=== PATIENT | female | born 1935 | race Caucasian/White ===

== ENCOUNTER → 2017-01-16 | Outpatient (CLI) | payer OTHER ==
[2017-01-16 13:04] LABS: BASO % 1.1 %; BASO ABS # 0.07 K/uL (0-0.2); COMPLETE YES; EOS % 2.8 %; HEMATOCRIT 39.5 % (37-47); IG% 0.2 %; LYMPH % 42.6 %; LYMPH ABS # 2.73 K/uL (1.2-3.4); MEAN CELL VOLUME 94.7 fL (80-100); MEAN CORPUSCULAR HEMOGLOBIN 31.9 pg (25-34); MEAN CORPUSCULAR HGB CONC 33.7 g/dl (32-36); MEAN PLATELET VOLUME 10.3 fL (7.4-10.4); MONO % 6.7 %; NEUT % 46.6 %; PLATELET COUNT 297 K/uL (130-400); RED BLOOD COUNT 4.17 M/uL (4.2-5.4); WHITE BLOOD COUNT 6.41 K/uL (4.8-10.8)
[2017-01-16 13:18] LABS: ALT/SGPT 28 U/L (12-78); AST/SGOT 28 U/L (15-37); BLOOD UREA NITROGEN 34 mg/dl (7-18); BUN/CREATININE RATIO 19.8 (10-20); CALCIUM 10.3 mg/dl (8.5-10.1); CARBON DIOXIDE 27 mmol/L (21-32); CHLORIDE 101 mmol/L (98-107); GLUCOSE 93 mg/dl (70-99); POTASSIUM 3.8 mmol/L (3.5-5.1); SODIUM 138 mmol/L (136-145)
[2017-01-16 13:31] LABS: ALB/GLOB RATIO 0.9 (0.9-2); ALKALINE PHOSPHATASE 46 U/L (45-117); CHOLESTEROL 146 mg/dl (0-200); CHOLESTEROL/HDL RATIO 3.6; HDL CHOLESTEROL 41 mg/dl; LDL CHOLESTEROL CALCULATED 78 mg/dl; TRIGLYCERIDES 136 mg/dl (0-150); VERY LOW DENSITY LIPOPROT CALC 27 mg/dl
[2017-01-16 14:01] LABS: ESTIMATED AVERAGE GLUCOSE 111 mg/dl; HA1C FLAG Normal (Normal)
== END | disposition home or self-care (01) ==
LOC: C.LABPBG 10:20
PROVIDERS: ATTEND Neuromusculoskeletal Medicine & OMM
DX: Z00.00 Encounter for general adult medical examination without abnormal findings (principal); E11.9 Type 2 diabetes mellitus without complications; E78.5 Hyperlipidemia, unspecified; I10 Essential (primary) hypertension

== ENCOUNTER → 2017-01-21 | Outpatient (CLI) | payer OTHER ==
--- NOTE | 2017-01-21 09:49 | DIAGNOSTIC IMAGING REPORT ---
EXAMINATION: RENAL ULTRASOUND CLINICAL HISTORY: N18.4 Chronic kidney disease, stage 4 (severe)[id number] COMPARISON STUDY: None FINDINGS: The right kidney measures 16.4 cm. The left kidney is surgically absent. There is no evidence of hydronephrosis. There is a 7 cm upper pole right renal cyst No bladder abnormalities are visualized. The right ureteral jet was visualized. IMPRESSION : 1. 7 cm upper pole right renal cyst 2. No solid renal masses identified 3. Surgically absent left kidney 4. No evidence of hydronephrosis Electronically signed by: Miah Gallo M.D. 01/21/2017 9:48 AM Dictated Date/Time: 01/21/2017 9:46 AM
== END | disposition home or self-care (01) ==
LOC: C.ULTRBC 08:59
PROVIDERS: ATTEND Neuromusculoskeletal Medicine & OMM
DX: N18.4 Chronic kidney disease, stage 4 (severe) (principal); N28.1 Cyst of kidney, acquired; Z90.5 Acquired absence of kidney

== ENCOUNTER → 2017-08-27 | Outpatient (CLI) | payer OTHER ==
[2017-08-27 18:24] LABS: BLOOD UREA NITROGEN 24 mg/dl (7-18); BUN/CREATININE RATIO 17.4 (10-20); CALCIUM 10.1 mg/dl (8.5-10.1); CARBON DIOXIDE 24 mmol/L (21-32); CHLORIDE 95 mmol/L (98-107); GLUCOSE 86 mg/dl (70-99); PHOSPHORUS 2.5 mg/dl (2.5-4.9); POTASSIUM 3.9 mmol/L (3.5-5.1); SODIUM 130 mmol/L (136-145)
== END | disposition home or self-care (01) ==
LOC: C.LABPBG 11:38
PROVIDERS: ATTEND Physician Assistant
DX: E87.1 Hypo-osmolality and hyponatremia (principal)

== ENCOUNTER → 2017-09-03 | Outpatient (CLI) | payer OTHER ==
[2017-09-03 13:16] LABS: BLOOD UREA NITROGEN 25 mg/dl (7-18); BUN/CREATININE RATIO 16.6 (10-20); CALCIUM 10.2 mg/dl (8.5-10.1); CARBON DIOXIDE 25 mmol/L (21-32); CHLORIDE 96 mmol/L (98-107); GLUCOSE 120 mg/dl (70-99); POTASSIUM 3.7 mmol/L (3.5-5.1); SODIUM 132 mmol/L (136-145)
== END | disposition home or self-care (01) ==
LOC: C.LABPBG 11:09
PROVIDERS: ATTEND Internal Medicine Nephrology
DX: N18.4 Chronic kidney disease, stage 4 (severe) (principal); E87.1 Hypo-osmolality and hyponatremia

== ENCOUNTER → 2018-01-29 | Outpatient (CLI) | payer OTHER ==
[2018-01-29 13:19] LABS: HEMOGLOBIN A1C 5.5 % (4.5-5.6)
== END | disposition home or self-care (01) ==
LOC: C.LABPBG 10:41
PROVIDERS: ATTEND Family Medicine
DX: E11.9 Type 2 diabetes mellitus without complications (principal); E78.5 Hyperlipidemia, unspecified

== ENCOUNTER → 2018-02-26 | Outpatient (CLI) | payer OTHER ==
[2018-02-26 16:59] LABS: ALBUMIN 3.3 gm/dl (3.4-5.0); BLOOD UREA NITROGEN 29 mg/dl (7-18); CALCIUM 9.6 mg/dl (8.5-10.1); CARBON DIOXIDE 27 mmol/L (21-32); CREATININE 1.74 mg/dl (0.60-1.20); GLUCOSE 79 mg/dl (70-99); PHOSPHORUS 2.8 mg/dl (2.5-4.9); POTASSIUM 3.6 mmol/L (3.5-5.1); SODIUM 136 mmol/L (136-145)
== END | disposition home or self-care (01) ==
LOC: C.LABPBG 10:31
PROVIDERS: ATTEND Internal Medicine Nephrology
DX: N18.4 Chronic kidney disease, stage 4 (severe) (principal)

== ENCOUNTER → 2018-04-17 | Outpatient (CLI) | payer OTHER ==
[2018-04-17 17:44] LABS: BLOOD UREA NITROGEN 27 mg/dl (7-18); CARBON DIOXIDE 29 mmol/L (21-32); CREATININE 1.42 mg/dl (0.60-1.20); GLUCOSE 118 mg/dl (70-99); POTASSIUM 3.9 mmol/L (3.5-5.1); SODIUM 136 mmol/L (136-145)
== END | disposition home or self-care (01) ==
LOC: C.LABPBG 14:45
PROVIDERS: ATTEND Family Medicine
DX: R42 Dizziness and giddiness (principal); R00.2 Palpitations; R06.02 Shortness of breath

== ENCOUNTER 2021-11-23 19:21 | Inpatient (IN) ==
[~2021-11-23 19:21] MED LIST: ATROPINE SULFATE 0.1 MG/ML 10ML SYR IV ONE; SODIUM BICARB 8.4% INJ 50 MEQ/50 ML SYR IV ONE; SODIUM CHLORIDE 0.9% 10ML FLUSH IV ONE
--- NOTE | 2021-11-23 19:35 | Emergency Department Note ---
Impression & Plan Hypoxia, COVID-19 Admission ED Provider Note HPI: Patient arrived to the ED via EMS ambulance The patient is an 86-year-old female With history of paroxysmal atrial fi brillation, on rivaroxaban, chronic kidney disease, type 2 diabetes, who presents the emergency department the chief complaint of cough that is been worsening for the past several days. Patient states that she was recently started on doxycycline by her PCP without resolution of her cough. States she is also had some generalized weakness. She is not vaccinated against influenza or COVID-19. Per EMS report, patient was saturating at only 80% on room air on their arrival, she responded well to nasal cannula oxygen. On arrival here to the ED she is on room air while being switched over and has saturations at 89% on room air. She denies any chest pain. States she has had some diarrhea but she does not have any abdominal pain. She is otherwise in no acute distress on my initial evaluation. ROS: - Pulmonary: Cough, Shortness of breath *10 point review systems was conducted and is otherwise negative unless stated above *Outpatient medications and allergy history reviewed PE: General: Alert, NAD HEENT: Normocephalic, atraumatic, trachea midline Eyes: Extraocular eye movement is intact, no scleral erythema Pulmonary: Diminished breath sounds bilaterally with mild expiratory wheezing, coarse bilateral breath sounds are appreciated Cardio: Regular rate and rhythm GI: Abdomen is soft, nontender : No suprapubic tenderness MSK: No evidence of trauma or malformation of the extremities, no edema Skin: No evidence of rash Neuro: Alert, no focal deficits Psychiatric: 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 Patient states she has been increasingly symptomatic from the standpoint over the past several days. She was concerned that she might have pneumonia therefore presented to the ED for further assessment. She is saturating at 89% on room air on arrival with mild increased work of breathing. Labwork Does not show any evidence of leukocytosis, troponin is negative x1, EKG shows atrial fibrillation without ischemic changes. COVID-19 testing is positive.Patient is noted to have slight hypokalemia 2.9 which was repleted orally.Lactic acid level is elevated slightly at 2.3, patient was given IV fluids in the ED. She was not given a full 30 cc/kg secondary to hemodynamic stability and concern for fluid overload. Interventions included MDI Treatment, IV steroids. Chest x-ray was obtained that shows What appears to be a viral pattern of inflammation/pneumonia. Procalcitonin is low, I do suspect that the patient's symptoms are secondary to COVID-19 pneumonia. She does not have a leukocytosis in addition to low procalcitonin, low suspicion for bacterial infection at this time. Given the patient's oxygen requirement, she will require admission, case was discussed with the on-call hospitalist for [facility] and the patient was admitted in improved condition. * CRITICAL CARE TIME: 40 minutes - Stabilization of hypoxia requiring nasal cannula oxygen to maintain oxygen saturations greater than 90% on room air, time spent at bedside, interpretation of diagnostic studies, discussion with other healthcare providers/physicians Diagnosis: 1. Hypoxia With supplemental oxygen requirement 2. COVID-19 pneumonia 3. Lactic acidosis 4. Hypokalemia Disposition: Admission Bebeto Schulz DO Emergency Medicine Past Med/Surg History Medical History Anxiety Arthritis Benign essential hypertension Chronic kidney disease, stage 4 (severe) Degenerative joint disease of knee Diabetes type 2, controlled Essential tremor Glaucoma Hyperlipidemia Paroxysmal atrial fibrillation Reactive airway disease Solitary right kidney Urinary incontinence Vitamin D deficiency Surgical History S/P cataract surgery S/P cholecystectomy S/p nephrectomy (1978) S/P total hysterectomy and bilateral salpingo-oophorectomy (1976) Family History Mother , 1962. Cardiac disorder Asthma Rheumatic fever Stroke Father , when patient was 4 yrs old No problems noted. Sister Asthma Denies family history of Ovarian cancer Prostate cancer Myocardial infarction Breast cancer Colorectal cancer Social History Smoking Status: Never smoker Second Hand Exposure: Yes; Hx Alcohol Use: No Hx Substance Use: No Preferred Language: [place] Visual Impairment: Limited Hearing Ability: Normal Hide And Skin Classer Required: No Beliefs That Will Affect Care: None marital status: / Current Living Situation: Other Current Living Situation Comment: lives with daughter and dogs Feels Safe at Home: Yes Childhood Exposure to Second-Hand Smoke: Yes caffeine: Yes during the past year weight has: remained stable Dental Care, Regularly: No Physical Activity Frequency: Does not Exercise Seatbelt Use: always Sunscreen Use: No Allergies Allergies Allergy/AdvReac Type Severity Reaction Status Date / Time No Known Drug Allergies Allergy Verified 06/22/21 12:01 Home Meds Home Medications Medication Instructions Recorded Confirmed brinzolamide 1 % eye 1 drops OP BID ml 07/26/19 11/23/21 drops,suspension fluticasone propionate 50 1 sprays INTRANASAL BID #1 gm 07/26/19 11/23/21 mcg/actuation nasal spray,suspension omega-3 fatty acids-fish oil 360 1 cap PO BID 07/26/19 11/23/21 mg-1,200 mg capsule (Fish Oil) blood sugar diagnostic See Rx Instructions MISCELLANEOUS 07/30/19 11/23/21 [Diabetic.com Test] .COMPLEX acetaminophen 500 mg capsule 500 mg PO HS PRN cap 08/04/19 11/23/21 latanoprost 0.005 % eye drops 1 drops OP .COMPLEX 08/04/19 11/23/21 cetirizine 10 mg tablet (All Day 10 mg PO DAILY PRN tab 06/01/21 11/23/21 Allergy (cetirizine)) Previous Rx's Medication Instructions Recorded multivitamin (Multiple Vitamins) 1 tab PO QAM #30 tab 07/30/19 amlodipine 5 mg tablet 5 mg PO DAILY #90 tab 05/15/21 losartan 100 mg tablet 100 mg PO DAILY #90 tab 05/15/21 fenofibrate nanocrystallized 145 145 mg PO DAILY #90 tab 05/26/21 mg tablet furosemide 20 mg tablet 20 mg PO DAILY #90 tab 05/26/21 metoprolol succinate 50 mg 50 mg PO DAILY #90 tab 05/26/21 tablet,extended release 24 hr rivaroxaban 15 mg tablet (Xarelto) 15 mg PO QPM #90 tab 05/31/21 fluticasone 500 mcg-salmeterol 50 1 inh INHALATION BID #60 ea 06/12/21 mcg/dose blistr powdr for inhalation albuterol sulfate 90 mcg/actuation 1 - 2 puff INHALATION Q4H PRN #18 09/04/21 aerosol inhaler gm alprazolam 0.5 mg tablet 0.5 mg PO BID #60 tab 11/07/21 doxycycline hyclate 100 mg tablet 100 mg PO BID 7 Days #14 tab 11/22/21 Results & Data (ED) Vital Signs Vital Signs - 24 hr 11/23/21 19:55 11/23/21 20:00 11/23/21 20:01 Temperature 37.4 C Temperature Source Axillary Pulse Rate 92 H Pulse Rate [Left Apical] Pulse Rhythm Irregular Pulse Rhythm [Left Apical] Pulse Strength Normal Respiratory Rate 24 22 Respiratory Effort / Characteristics Non-Labored Non-Labored Respiratory Depth Normal Respiratory Pattern Blood Pressure 149/78 H Blood Pressure [Left Arm] Blood Pressure Mean 101 Blood Pressure Mean [Left Arm] Blood Pressure Position Sitting Blood Pressure Position [Left Arm] Pulse Oximetry 89 L 93 93 Oxygen Delivery Method Room Air Nasal Cannula Nasal Cannula Oxygen Flow Rate 2 2 Sepsis Recent Fever Within 48 Hours Yes Sepsis New/Unexplained Change in Mental Status No Sepsis Action Taken by Nursing No Action Required Oxygen Flow Rate - Titration 2 Pulse Oximetry Post Tiitration 93 11/23/21 21:47 11/23/21 21:51 Temperature Temperature Source Pulse Rate Pulse Rate [Left Apical] 102 H Pulse Rhythm Pulse Rhythm [Left Apical] Irregular Pulse Strength Respiratory Rate 24 Respiratory Effort / Characteristics Non-Labored Non-Labored Respiratory Depth Normal Normal Respiratory Pattern Regular Regular Blood Pressure Blood Pressure [Left Arm] 149/78 H Blood Pressure Mean Blood Pressure Mean [Left Arm] 101 Blood Pressure Position Blood Pressure Position [Left Arm] Sitting Pulse Oximetry 89 L Oxygen Delivery Method Nasal Cannula Nasal Cannula Oxygen Flow Rate 2 3 Sepsis Recent Fever Within 48 Hours Sepsis New/Unexplained Change in Mental Status Sepsis Action Taken by Nursing Oxygen Flow Rate - Titration Pulse Oximetry Post Tiitration Laboratory Data Result diagrams: 11/23/21 19:48 11/23/21 19:48 Lab Results 11/23/21 11/23/21 11/23/21 Range/Units 19:48 19:48 19:48 WBC 5.13 (4.8-10.8) K/uL RBC 4.26 (4.2-5.4) M/uL Hgb 13.8 (12.0-16.0) g/dL Hct 40.0 (37-47) % MCV 93.9 (80-100) fL MCH 32.4 (25-34) pg MCHC 34.5 (32-36) g/dL RDW Std Deviation 44.7 (36.4-46.3) fL RDW Coeff of Maren 13.0 (11.5-14.5) % Plt Count 253 (130-400) K/uL MPV 10.4 (7.4-10.4) fL Immature Gran % (Auto) 0.2 % Neut % (Auto) 84.6 % Lymph % (Auto) 10.5 % [place] % (Auto) 4.7 % Eos % (Auto) 0.0 % Baso % (Auto) 0.0 % Neut # (Auto) 4.34 (1.4-6.5) K/uL Lymph # (Auto) 0.54 L (1.2-3.4) K/uL [place] # (Auto) 0.24 (0.11-0.59) K/uL Eos # (Auto) 0.00 (0-0.5) K/uL Baso # (Auto) 0.00 (0-0.2) K/uL Immature Gran # (Auto) 0.01 (0.00-0.02) K/uL PT (9.0-12.0) Seconds INR (0.9-1.1) APTT (21.0-31.0) Seconds PTT Ratio Sodium 131 L (136-145) mmol/L Potassium 2.9 L (3.5-5.1) mmol/L Chloride 94 L (98-107) mmol/L Carbon Dioxide 29 (21-32) mmol/L Anion Gap 8.0 (3-11) BUN 25 H (7-18) mg/dl Creatinine 1.15 (0.6-1.2) mg/dl Est Cr Clr Drug Dosing 39.8 ml/min Est GFR ( Amer) 49.2 ml/min Est GFR (Non-Af Amer) 42.4 ml/min BUN/Creatinine Ratio 21.8 H (10-20) Glucose 185 H (70-99) mg/dl Lactate 2.3 H* (0.4-2.0) mmol/L Calcium 8.6 (8.5-10.1) mg/dl Magnesium 2.0 (1.8-2.4) mg/dl Total Bilirubin 0.7 (0.2-1) mg/dl AST 81 H (15-37) U/L ALT 45 (12-78) Alkaline Phosphatase 56 (45-117) U/L Troponin I 0.022 (0-0.045) ng/ml Total Protein 6.5 (6.4-8.2) gm/dl Albumin 2.3 L (3.4-5.0) gm/dl Globulin 4.2 H (2.5-4.0) gm/dl Albumin/Globulin Ratio 0.5 L (0.9-2) Procalcitonin (0-0.5) ng/ml SARS-CoV-2 (PCR) (Negative) Influenza Type A (PCR) (Neg) Influenza Type B (PCR) (Neg) RSV (RT-PCR) (Neg) 11/23/21 11/23/21 11/23/21 Range/Units 19:48 19:48 19:48 WBC (4.8-10.8) K/uL RBC (4.2-5.4) M/uL Hgb (12.0-16.0) g/dL Hct (37-47) % MCV (80-100) fL MCH (25-34) pg MCHC (32-36) g/dL RDW Std Deviation (36.4-46.3) fL RDW Coeff of Maren (11.5-14.5) % Plt Count (130-400) K/uL MPV (7.4-10.4) fL Immature Gran % (Auto) % Neut % (Auto) % Lymph % (Auto) % [place] % (Auto) % Eos % (Auto) % Baso % (Auto) % Neut # (Auto) (1.4-6.5) K/uL Lymph # (Auto) (1.2-3.4) K/uL [place] # (Auto) (0.11-0.59) K/uL Eos # (Auto) (0-0.5) K/uL Baso # (Auto) (0-0.2) K/uL Immature Gran # (Auto) (0.00-0.02) K/uL PT 13.8 H (9.0-12.0) Seconds INR 1.4 H (0.9-1.1) APTT 33.8 H (21.0-31.0) Seconds PTT Ratio 1.3 Sodium (136-145) mmol/L Potassium (3.5-5.1) mmol/L Chloride (98-107) mmol/L Carbon Dioxide (21-32) mmol/L Anion Gap (3-11) BUN (7-18) mg/dl Creatinine (0.6-1.2) mg/dl Est Cr Clr Drug Dosing ml/min Est GFR ( Amer) ml/min Est GFR (Non-Af Amer) ml/min BUN/Creatinine Ratio (10-20) Glucose (70-99) mg/dl Lactate (0.4-2.0) mmol/L Calcium (8.5-10.1) mg/dl Magnesium (1.8-2.4) mg/dl Total Bilirubin (0.2-1) mg/dl AST (15-37) U/L ALT (12-78) Alkaline Phosphatase (45-117) U/L Troponin I (0-0.045) ng/ml Total Protein (6.4-8.2) gm/dl Albumin (3.4-5.0) gm/dl Globulin (2.5-4.0) gm/dl Albumin/Globulin Ratio (0.9-2) Procalcitonin 0.17 (0-0.5) ng/ml SARS-CoV-2 (PCR) POSITIVE A* (Negative) Influenza Type A (PCR) Negative (Neg) Influenza Type B (PCR) Negative (Neg) RSV (RT-PCR) Negative (Neg) Administered Medications Discontinued Medications Albuterol (Ipratropium De Beque/Albuterol Respimat Inh) 1 puffs INH NOW STA Stop: 11/23/21 21:08 Last Admin: 11/23/21 21:35 Dose: 1 puffs Documented by: [id number] Sodium Chloride (Nss 1000ml) 500 mls @ 999 mls/hr IV .Q31M ONE Stop: 11/23/21 21:12 Last Admin: 11/23/21 21:35 Dose: 999 mls/hr Documented by: [id number] Methylprednisolone (Methylprednisolone 125 Mg/2 Ml Vial) 125 mg IV NOW STA Stop: 11/23/21 21:08 Last Admin: 11/23/21 21:35 Dose: 125 mg Documented by: [id number] Discharge Plan Visit Data Chief Complaint: Shortness of Breath/Dyspnea Stated Complaint: SOB, COVID EXPOSURE(SPOUSE) ED Provider: Bebeto Schulz Discharge Problem: Hypoxia, COVID-19 Forms Stand Alone Forms: [facility] Prescriptions Prescriptions: No Action amlodipine 5 mg tablet 5 mg PO DAILY Qty: 90 RF: 3 losartan 100 mg tablet 100 mg PO DAILY Qty: 90 RF: 3 fenofibrate nanocrystallized 145 mg tablet 145 mg PO DAILY Qty: 90 RF: 3 furosemide 20 mg tablet 20 mg PO DAILY Qty: 90 RF: 3 metoprolol succinate 50 mg tablet extended release 24 hr 50 mg PO DAILY Qty: 90 RF: 3 Xarelto 15 mg tablet 15 mg PO QPM Qty: 90 RF: 3 fluticasone propion-salmeterol 500-50 mcg/dose blister with device 1 inh inhalation BID Qty: 60 RF: 5 albuterol sulfate 90 mcg/actuation HFA aerosol inhaler 1 - 2 puff inhalation Q4H PRN (Reason: acute bronchitis) Qty: 18 RF: 1 alprazolam 0.5 mg tablet 0.5 mg PO BID Qty: 60 RF: 0 doxycycline hyclate 100 mg tablet 100 mg PO BID 7 Days Qty: 14 RF: 0 brinzolamide 1 % drops,suspension 1 drops OP BID RF: 0 omega-3 fatty acids-fish oil [Fish Oil] 360-1,200 mg capsule 1 cap PO BID RF: 0 fluticasone propionate 50 mcg/actuation spray,suspension 1 sprays intranasal BID Qty: 1 RF: 0 blood sugar diagnostic See Rx Instructions miscellaneous .COMPLEX RF: 0 acetaminophen 500 mg capsule 500 mg PO HS PRN (Reason: Pain) RF: 0 latanoprost 0.005 % drops 1 drops OP .COMPLEX RF: 0 cetirizine [All Day Allergy (cetirizine)] 10 mg tablet 10 mg PO DAILY PRN (Reason: allergies) RF: 0 multivitamin [Multiple Vitamins] tablet 1 tab PO QAM Qty: 30 RF: 0 Referrals Referrals: Teresa Vaughn DO [Primary Care Provider] -
[2021-11-23 20:02] LABS: Hemoglobin 13.8 g/dL (12.0-16.0); Mean Corpuscular Hemoglobin 32.4 pg (25-34); Mean Corpuscular Hgb Conc 34.5 g/dL (32-36); Mean Corpuscular Volume 93.9 fL (80-100); Mean Platelet Volume 10.4 fL (7.4-10.4); Platelet Count 253 K/uL (130-400); RDW Standard Deviation 44.7 fL (36.4-46.3); Red Blood Count 4.26 M/uL (4.2-5.4); White Blood Count 5.13 K/uL (4.8-10.8)
[2021-11-23 20:17] LABS: Albumin Level 2.3 gm/dl (3.4-5.0); BUN Creatinine Ratio 21.8 (10-20); Calcium 8.6 mg/dl (8.5-10.1); Creatinine Clr Calc Pharmacy 39.8 ml/min; Est GFR (African American) 49.2 ml/min; Est GFR (Non-African American) 42.4 ml/min; Potassium 2.9 mmol/L (3.5-5.1)
[2021-11-23 20:19] LABS: INR 1.4 (0.9-1.1); Partial Thromboplastin Ratio 1.3; Partial Thromboplastin Time 33.8 Seconds (21.0-31.0); Prothrombin Time 13.8 Seconds (9.0-12.0)
[2021-11-23 20:20] LABS: Immature Granulocytes # (auto) 0.01 K/uL (0.00-0.02); Immature Granulocytes % (auto) 0.2 %; Lymphocytes # (auto) 0.54 K/uL (1.2-3.4); Lymphocytes % (auto) 10.5 %; Monocytes # (auto) 0.24 K/uL (0.11-0.59); Monocytes % (auto) 4.7 %; Neutrophils # (auto) 4.34 K/uL (1.4-6.5); Neutrophils % (auto) 84.6 %
[2021-11-23 20:22] LABS: Albumin Globulin Ratio 0.5 (0.9-2); Bilirubin,Total 0.7 mg/dl (0.2-1); Globulin 4.2 gm/dl (2.5-4.0); Total Protein 6.5 gm/dl (6.4-8.2); Troponin I 0.022 ng/ml (0-0.045)
[2021-11-23] MEDS ORDERED: SODIUM CHLORIDE 0.9% 1000ML 500 ML IV ONE (20:42)
[2021-11-23] MEDS ORDERED: IPRATROPIUM BROMIDE/ALBUTEROL respimat INH INH STA (21:07)
[2021-11-23] MEDS ORDERED: methylPREDNISolone 125 MG/2 ML VIAL IV STA (21:07)
[2021-11-23 21:19] LABS: Influenza A virus by PCR Negative (Neg); Influenza B virus by PCR Negative (Neg); RSV by PCR Negative (Neg)
[2021-11-23 21:30] LABS: SARS CoV2 RNA(COVID-19) InHosp POSITIVE (Negative)
[2021-11-23] MEDS ORDERED: POTASSIUM CHLORIDE PWD 20 MEQ PACK PO ONE (21:53)
[2021-11-23] MEDS ORDERED: REMDESIVIR 200 MG in SODIUM CHLORIDE 0.9% 210 ML IV STA (22:40)
--- NOTE | 2021-11-23 22:41 | History & Physical Report ---
Date of Service November 23, 2021 Assessment & Plan (1) Pneumonia due to COVID-19 virus: Plan: COVID-19 pneumonia with hypoxia- Dexamethasone 6 mg IV every morning Remdesivir IV per protocol Azithromycin 5 mg IV daily Ventolin HFA 2 puffs every 2 hours as needed Nasal cannula oxygen, titrate to keep pulse ox 94-95% Vitamin D 1000 international units p.o. every morning guaifenesin extended release 12 mg p.o. every 12 hours (2) Hypoxia: Plan: See above (3) Paroxysmal atrial fibrillation: Plan: Paroxysmal atrial fibrillation/hypertension- Continue amlodipine, losartan, metoprolol succinate and Xarelto (4) Hyperlipidemia: Plan: Continue fenofibrate (5) Glaucoma: Plan: Continue routine eyedrops (6) Essential tremor: (7) Diabetes type 2, controlled: Plan: Glucose 185 upon admission Placed on Accu-Cheks before meals and at bedtime with NovoLog coverage per scale Check hemoglobin A1c (8) Benign essential hypertension: Plan: See above (9) Anxiety: Plan: Continue alprazolam History of Present Illness Chief Complaint: The patient presents to the emergency department with complaint of worsening shortness of breath over the past 6 to 7 days, have been placed on doxycycline by her PCP without improvement in her cough. Primary Care Provider: Teresa Vaughn DO The patient is a 86-year-old female with a past medical history including CKD stage IV, hypertension, anxiety, urinary incontinence, diabetes mellitus type 2, essential tremor, glaucoma, hyperlipidemia, paroxysmal A. fib, reactive airways disease, solitary kidney and vitamin D deficiency. Patient presents with symptoms as noted above. Allergies Allergy/AdvReac Type Severity Reaction Status Date / Time No Known Drug Allergies Allergy Verified 06/22/21 12:01 Home Medications Medication Instructions Recorded Confirmed Type brinzolamide 1 % eye 1 drops OP BID ml 07/26/19 11/23/21 History drops,suspension fluticasone propionate 50 1 sprays INTRANASAL BID #1 gm 07/26/19 11/23/21 History mcg/actuation nasal spray,suspension omega-3 fatty acids-fish oil 360 1 cap PO BID 07/26/19 11/23/21 History mg-1,200 mg capsule (Fish Oil) blood sugar diagnostic See Rx Instructions MISCELLANEOUS 07/30/19 11/23/21 History [Diabetic.com Test] .COMPLEX multivitamin (Multiple Vitamins) 1 tab PO QAM #30 tab 07/30/19 11/23/21 Rx acetaminophen 500 mg capsule 500 mg PO HS PRN cap 08/04/19 11/23/21 History latanoprost 0.005 % eye drops 1 drops OP .COMPLEX 08/04/19 11/23/21 History amlodipine 5 mg tablet 5 mg PO DAILY #90 tab 05/15/21 11/23/21 Rx losartan 100 mg tablet 100 mg PO DAILY #90 tab 05/15/21 11/23/21 Rx fenofibrate nanocrystallized 145 145 mg PO DAILY #90 tab 05/26/21 11/23/21 Rx mg tablet furosemide 20 mg tablet 20 mg PO DAILY #90 tab 05/26/21 11/23/21 Rx metoprolol succinate 50 mg 50 mg PO DAILY #90 tab 05/26/21 11/23/21 Rx tablet,extended release 24 hr rivaroxaban 15 mg tablet (Xarelto) 15 mg PO QPM #90 tab 05/31/21 11/23/21 Rx cetirizine 10 mg tablet (All Day 10 mg PO DAILY PRN tab 06/01/21 11/23/21 History Allergy (cetirizine)) fluticasone 500 mcg-salmeterol 50 1 inh INHALATION BID #60 ea 06/12/21 11/23/21 Rx mcg/dose blistr powdr for inhalation albuterol sulfate 90 mcg/actuation 1 - 2 puff INHALATION Q4H PRN #18 09/04/21 11/23/21 Rx aerosol inhaler gm alprazolam 0.5 mg tablet 0.5 mg PO BID #60 tab 11/07/21 11/23/21 Rx doxycycline hyclate 100 mg tablet 100 mg PO BID 7 Days #14 tab 11/22/21 11/23/21 Rx Past Med/Surg History Medical History Anxiety Arthritis Benign essential hypertension Chronic kidney disease, stage 4 (severe) Degenerative joint disease of knee Diabetes type 2, controlled Essential tremor Glaucoma Hyperlipidemia Paroxysmal atrial fibrillation Reactive airway disease Solitary right kidney Urinary incontinence Vitamin D deficiency Surgical History S/P cataract surgery S/P cholecystectomy S/p nephrectomy (1978) S/P total hysterectomy and bilateral salpingo-oophorectomy (1976) Family History Mother , 1962. Cardiac disorder Asthma Rheumatic fever Stroke Father , when patient was 4 yrs old No problems noted. 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 Beliefs That Will Affect Care: None marital status: / Current Living Situation: Other Current Living Situation Comment: lives with daughter and dogs Feels Safe at Home: Yes Childhood Exposure to Second-Hand Smoke: Yes caffeine: Yes during the past year weight has: remained stable Dental Care, Regularly: No Physical Activity Frequency: Does not Exercise Seatbelt Use: always Sunscreen Use: No Review of Systems Review of Systems: The patient denies palpitations, lower extremity swelling, sore throat, fevers, chills, sweats, nausea, vomiting, diarrhea , constipation, abdominal pain, pelvic pain, blood in urine or stool, dysuria, lightheadedness, dizziness, loss of consciousness, rash, abnormal bruising or bleeding, focal weakness, numbness or tingling in arms or legs, generalized arthralgias or myalgias, back or neck pain, or night sweats. The review of systems is otherwise negative other than for that already noted above, and at least 10 systems have been reviewed. Physical Exam Physical Exam: The patient is awake, alert and oriented 3, normocephalic and atraumatic, lying in bed and in no acute distress. HEENT--PERRL, EOMI, mucous membranes and oropharynx dry. Neck--supple. No JVD. No bruits. Thyroid normal, trachea midline, no adenopathy. Heart--normal S1 and S2. No murmurs, rubs or gallops. Lungs--coarse breath sounds bilaterally. No respiratory distress, no accessory muscle use. Abdomen--normal bowel sounds and soft. Nontender. Nondistended Extremities--no cyanosis or clubbing. No edema Dermatologic--normal skin turgor, normal color, no abnormal lymph nodes, no rash. Neurologic--cranial nerves II through XII grossly intact. Rheumatologic--normal range of motion. Psychiatric--normal affect. Results & Data Results & Data ([facility]) Vital Signs (Past 12 Hours) Vital Signs Temp Pulse Pulse Resp BP BP Pulse Ox 11/23/21 21:47 102 H 24 149/78 H 89 L 11/23/21 20:01 93 11/23/21 20:00 22 93 11/23/21 19:55 37.4 C 92 H 24 149/78 H 89 L Laboratory Results Laboratory Results WBC 5.13 K/uL (4.8-10.8) 11/23/21 19:48 RBC 4.26 M/uL (4.2-5.4) 11/23/21 19:48 Hgb 13.8 g/dL (12.0-16.0) 11/23/21 19:48 Hct 40.0 % (37-47) 11/23/21 19:48 MCV 93.9 fL (80-100) 11/23/21 19:48 MCH 32.4 pg (25-34) 11/23/21 19:48 MCHC 34.5 g/dL (32-36) 11/23/21 19:48 RDW Std Deviation 44.7 fL (36.4-46.3) 11/23/21 19:48 RDW Coeff of Maren 13.0 % (11.5-14.5) 11/23/21 19:48 Plt Count 253 K/uL (130-400) 11/23/21 19:48 MPV 10.4 fL (7.4-10.4) 11/23/21 19:48 Immature Gran % (Auto) 0.2 % 11/23/21 19:48 Neut % (Auto) 84.6 % 11/23/21 19:48 Lymph % (Auto) 10.5 % 11/23/21 19:48 [place] % (Auto) 4.7 % 11/23/21 19:48 Eos % (Auto) 0.0 % 11/23/21 19:48 Baso % (Auto) 0.0 % 11/23/21 19:48 Neut # (Auto) 4.34 K/uL (1.4-6.5) 11/23/21 19:48 Lymph # (Auto) 0.54 K/uL (1.2-3.4) L 11/23/21 19:48 [place] # (Auto) 0.24 K/uL (0.11-0.59) 11/23/21 19:48 Eos # (Auto) 0.00 K/uL (0-0.5) 11/23/21 19:48 Baso # (Auto) 0.00 K/uL (0-0.2) 11/23/21 19:48 Immature Gran # (Auto) 0.01 K/uL (0.00-0.02) 11/23/21 19:48 PT 13.8 Seconds (9.0-12.0) H 11/23/21 19:48 INR 1.4 (0.9-1.1) H 11/23/21 19:48 APTT 33.8 Seconds (21.0-31.0) H 11/23/21 19:48 PTT Ratio 1.3 11/23/21 19:48 Sodium 131 mmol/L (136-145) L 11/23/21 19:48 Potassium 2.9 mmol/L (3.5-5.1) L 11/23/21 19:48 Chloride 94 mmol/L (98-107) L 11/23/21 19:48 Carbon Dioxide 29 mmol/L (21-32) 11/23/21 19:48 Anion Gap 8.0 (3-11) 11/23/21 19:48 BUN 25 mg/dl (7-18) H 11/23/21 19:48 Creatinine 1.15 mg/dl (0.6-1.2) 11/23/21 19:48 Est Cr Clr Drug Dosing 39.8 ml/min 11/23/21 19:48 Est GFR ( Amer) 49.2 ml/min 11/23/21 19:48 Est GFR (Non-Af Amer) 42.4 ml/min 11/23/21 19:48 BUN/Creatinine Ratio 21.8 (10-20) H 11/23/21 19:48 Glucose 185 mg/dl (70-99) H 11/23/21 19:48 Osmolality 284 mOsm/kg (280-300) 11/23/21 19:48 Lactate 1.5 mmol/L (0.4-2.0) 11/23/21 21:42 Calcium 8.6 mg/dl (8.5-10.1) 11/23/21 19:48 Magnesium 2.0 mg/dl (1.8-2.4) 11/23/21 19:48 Total Bilirubin 0.7 mg/dl (0.2-1) 11/23/21 19:48 AST 81 U/L (15-37) H 11/23/21 19:48 ALT 45 (12-78) 11/23/21 19:48 Alkaline Phosphatase 56 U/L (45-117) 11/23/21 19:48 Troponin I 0.022 ng/ml (0-0.045) 11/23/21 19:48 Total Protein 6.5 gm/dl (6.4-8.2) 11/23/21 19:48 Albumin 2.3 gm/dl (3.4-5.0) L 11/23/21 19:48 Globulin 4.2 gm/dl (2.5-4.0) H 11/23/21 19:48 Albumin/Globulin Ratio 0.5 (0.9-2) L 11/23/21 19:48 Procalcitonin 0.17 ng/ml (0-0.5) 11/23/21 19:48 SARS-CoV-2 (PCR) POSITIVE (Negative) A* 11/23/21 19:48 Influenza Type A (PCR) Negative (Neg) 11/23/21 19:48 Influenza Type B (PCR) Negative (Neg) 11/23/21 19:48 RSV (RT-PCR) Negative (Neg) 11/23/21 19:48 Code Status & VTE Plan Code Status Full code VTE Prophylaxis Plan VTE Prophylaxis will be ordered: Yes PG Care Time/CCT Total # of Minutes Spent Total Time Spent with Patient: Total time spent is greater than 50% in coordination of care (as documented) at patient's floor/unit and/or counseling patient: Coding Level of Care Code 77026 Initial Inpt Care Lvl 3 Diagnoses Pneumonia due to COVID-19 virus U07.1; J12.82 Hypoxia R09.02 Paroxysmal atrial fibrillation I48.0 Hyperlipidemia E78.5 Glaucoma H40.9 Essential tremor G25.0 Diabetes type 2, controlled E11.9 Benign essential hypertension I10 Anxiety F41.9
[2021-11-24] MEDS ORDERED: GLUCOSE 40% GEL 15 GM TUBE PO PRN (01:46)
[2021-11-24] MEDS ORDERED: DEXTROSE 50% 50 ML SYRINGE IV PRN (01:46)
[2021-11-24] MEDS ORDERED: GLUCAGON FOR INJ 1 MG VIAL SQ PRN (01:46)
[2021-11-24] MEDS ORDERED: ALBUTEROL HFA 8 GM INHALER INH PRN (01:46)
[2021-11-24] MEDS ORDERED: ONDANSETRON INJ 2 MG/ML 2 ML VIAL IV PRN (01:46)
[2021-11-24] MEDS ORDERED: GLUCOSE 10 TABS/TUBE PO PRN (01:46)
[2021-11-24] MEDS ORDERED: CETIRIZINE HCL 10 MG TABLET PO PRN (01:46)
[2021-11-24] MEDS ORDERED: CARBOHYDRATES FOR HYPOGLYCEMIA PO PRN (01:46)
[2021-11-24] MEDS: SODIUM CHLORIDE 0.9% 10ML FLUSH IV SCH ×2 (01:56→22:04)
[2021-11-24] MEDS ORDERED: dexAMETHasone 6 MG in SYRINGE 0 ML IV ONE (02:00)
[2021-11-24 05:54] LABS: Basophils # (auto) 0.01 K/uL (0-0.2); Basophils % (auto) 0.3 %; Hematocrit (blood only) 36.6 % (37-47); Hemoglobin 12.5 g/dL (12.0-16.0); Immature Granulocytes # (auto) 0.01 K/uL (0.00-0.02); Immature Granulocytes % (auto) 0.3 %; Lymphocytes # (auto) 0.57 K/uL (1.2-3.4); Lymphocytes % (auto) 15.3 %; Mean Corpuscular Hemoglobin 32.1 pg (25-34); Mean Corpuscular Hgb Conc 34.2 g/dL (32-36); Mean Corpuscular Volume 94.1 fL (80-100); Mean Platelet Volume 10.1 fL (7.4-10.4); Monocytes # (auto) 0.15 K/uL (0.11-0.59); Neutrophils # (auto) 2.99 K/uL (1.4-6.5); Neutrophils % (auto) 80.1 %; Platelet Count 222 K/uL (130-400); RDW Coefficient of Variation 13.1 % (11.5-14.5); RDW Standard Deviation 45.3 fL (36.4-46.3); Red Blood Count 3.89 M/uL (4.2-5.4); White Blood Count 3.73 K/uL (4.8-10.8)
[2021-11-24 06:22] LABS: BUN Creatinine Ratio 22.1 (10-20); Calcium 8.6 mg/dl (8.5-10.1); Creatinine Clr Calc Pharmacy 41.2 ml/min; Est GFR (African American) 51.3 ml/min; Est GFR (Non-African American) 44.3 ml/min; Potassium 3.6 mmol/L (3.5-5.1)
[2021-11-24 06:23] LABS: Albumin Globulin Ratio 0.5 (0.9-2); Bilirubin,Total 0.5 mg/dl (0.2-1); Globulin 3.8 gm/dl (2.5-4.0); Total Protein 5.8 gm/dl (6.4-8.2)
--- NOTE | 2021-11-24 07:36 | XRay Report ---
XR chest 1V portable HISTORY: 86 years-old Female SEPSIS acute sepsis. COVID Positive. COMPARISON: None TECHNIQUE: Portable AP view of the chest FINDINGS: The cardiac silhouette is enlarged. Calcified plaque the thoracic aorta. No pneumothorax. Possible tr juan r pleural effusions. Interstitial coarsening with multifocal left greater than right mid and lower lung zone predominant airspace opacities. Degenerative changes of the shoulders and spine. IMPRESSION: Findings compatible with multifocal pneumonia. ACT 112: Negative or not required by law. The above report was generated using voice recognition software. It may contain grammatical, syntax o r spelling errors. Electronically signed by: Braulio Haskins M.D. 11/24/2021 7:35 AM
[2021-11-24 07:51] LABS: Estimated Average Glucose 137 mg/dl; Hemoglobin A1C 6.4 % (4.5-5.6)
[2021-11-24] MEDS ORDERED: AZITHROMYCIN 500 MG in DEXTROSE 5% 250 ML IV SCH (09:00)
[2021-11-24] MEDS: FLUTICASONE/VILANTEROL 200/25MCG 14 PUFFS/INHALER INH SCH (09:55)
[2021-11-24] MEDS: MULTIVITAMIN TAB PO SCH (09:55)
[2021-11-24] MEDS: ZINC SULFATE 220 MG CAPSULE PO SCH (09:55)
[2021-11-24] MEDS: LOSARTAN POTASSIUM 50 MG TAB PO SCH (09:56)
[2021-11-24] MEDS: guaiFENesin 600 MG TABCR PO SCH ×2 (09:56→22:05)
[2021-11-24] MEDS: dexAMETHasone 6 MG in SYRINGE 0 ML IV SCH (09:56)
[2021-11-24] MEDS: METOPROLOL SUCC 50MG EXT REL TAB PO SCH (09:56)
[2021-11-24] MEDS: FENOFIBRATE NANOCRYSTALLIZED 145 MG TABLET PO SCH (09:56)
[2021-11-24] MEDS: OMEGA-3 (PURIFIED FISH OIL) 1 GM CAP PO SCH ×2 (09:56→22:06)
[2021-11-24] MEDS: CHOLECALCIFEROL 1,000 UNITS 25 MCG TAB PO SCH (09:57)
[2021-11-24] MEDS: BRINZOLAMIDE (AZOPT) OPS 10 ML BTL OP SCH ×2 (09:57→22:04)
[2021-11-24] MEDS: amLODIPine BESYLATE 5 MG TAB PO SCH (09:57)
[2021-11-24] MEDS: ALPRAZolam 0.5 MG TABLET PO SCH ×2 (09:57→22:04)
--- NOTE | 2021-11-24 10:24 | Electrocardiogram Report ---
Test Reason : Blood Pressure : / mmHG Vent. Rate : 108 BPM Atrial Rate : 136 BPM P-R Int : 000 ms QRS Dur : 118 ms QT Int : 376 ms P-R-T Axes : 000 -38 132 degrees QTc Int : 503 ms Atrial fibrillation with rapid ventricular response with premature ventricular or aberrantly conducte d complexes Left axis deviation Left ventricular hypertrophy with QRS widening Abnormal ECG No previous ECGs available Confirmed by Micheal Early ([id number]) on 11/24/2021 10:23:59 AM Referred By: REFERRED SELF Confirmed By:Micheal Early
[2021-11-24] MEDS: INSULIN ASPART PER UNIT SC SCH ×4 (11:36→21:53)
[2021-11-24] MEDS: ALBUT/IPRATROP 3MG/0.5MG NEB 3 ML VIAL NEB SCH ×2 (11:37)
--- NOTE | 2021-11-24 14:32 | Hospitalist Progress Note ---
Date of Service November 24, 2021 Assessment & Plan (1) Pneumonia due to COVID-19 virus: Plan: With associated hypoxia Dexamethasone 6 mg IV daily x 10 days Remdesivir IV per protocol Azithromycin 500 mg IV daily ordered by admitting team, will d/c, no additional benefit Ventolin HFA 2 puffs every 2 hours as needed Nasal cannula oxygen, titrate to keep pulse ox >88-92% Vitamin D 1000 international units & Zinc every morning Guaifenesin extended release 1200 mg p.o. every 12 hours Breo Ellipta Routine Duonebs ordered but will change to Xopenex/Atrovent d/t PAF Prone as much as possible Serial inflammatory markers q48h Provide a dose of IV Lasix 40mg x1 and resume daily PO dose (Lasix 20mg) tomorrow AM Aim to keep COVID patient's slightly net negative due to their tendency to more easily develop pulmonary edema COVID isolation precautions (2) Hypoxia: Plan: As per above (3) Paroxysmal atrial fibrillation: Plan: Currently in NSR Metoprolol succinate and Xarelto (4) Hyperlipidemia: Plan: Continue fenofibrate (5) Glaucoma: Plan: Continue routine eyedrops (6) Essential tremor: Plan: Doesn't appear to be on any chronic medications for this (7) Diabetes type 2, controlled: Plan: Glucose 185 upon admission Placed on Accu-Checks before meals and at bedtime with NovoLog coverage per scale hemoglobin A1c=6.4% Anticipate some hyperglycemia in setting of IV Decadron Add Lantus 10units at HS Follow blood sugars (8) Benign essential hypertension: Plan: See above (9) Anxiety: Plan: Continue alprazolam (10) Chronic kidney disease, stage 4 (severe): Plan: Follows with nephrology, baseline creat 1.6-1.8 per their documentation Suspect that she is actually hypervolemic Provide IV Lasix as noted above and resume daily Lasix Plan: Interventions as outlined above On Xarelto which is provided VTE ppx AM Labs ordered including CRP -- if continues to have climbing O2 requirements and CRP>7.5, would be candidate for Baricitinib Prognosis: guarded Code status d/w patient, she wishes to be full code at present Admission and Anticipated Discharge Date Admission Date: November 23, 2021 Subjective Ms. Joshua was seen on rounds today. Pt hospitalized with COVID-19 PNA w/ associated hypoxia. Pt reports symptoms x 7 days (today being day #8). Exposed through grandson. She is unvaccinated. Pt admits to dry, nonproductive cough. She feels like she needs to bring stuff up but can't. Denies chest pain, palpitations, n/v/d, f/c, headache, abd pain, or gu symptoms. Review of Systems Review of Systems: CONSTITUTIONAL: Denies weight loss/gain, fever and chills, fatigue, malaise, generalized weakness. HEENT: Denies changes in vision and hearing. RESPIRATORY: +cough. Denies SOB, wheezing. CV: Denies palpitations, CP, lower extremity edema, orthopnea, PND. GI: Denies abdominal pain, nausea, vomiting and diarrhea. : Denies dysuria and urinary frequency, urgency, hesitancy. MUSCULOSKELETAL: Denies myalgia and joint pain. SKIN: Denies rash and pruritus. NEUROLOGICAL: Denies headache, syncope, focal weakness, numbness, tingling. PSYCHIATRIC: Denies recent changes in mood. Denies anxiety and depression. Physical Exam Physical Exam: GENERAL: 86 yo WD/WN elderly WF. NAD. LUNGS: No accessory muscle use. Decreased air exchange. Scattered exp wheezes appreciated b/l. CARDIOVASCULAR: Regular rate and rhythm. No M/G/R. No JVD. ABDOMEN: Soft, non-tender and non-distended. No palpable masses. BS normal x 4 quad. EXTREMITIES: No edema. Non-tender. Peripheral pulses +2/4. NEUROLOGIC: A&O x3. PSYCHIATRIC: Cooperative. Appropriate mood and affect. SKIN: Warm, dry, intact. No rashes or lesions. Results & Data Results & Data ([facility]) Vital Signs (Past 12 Hours) Vital Signs Pulse Resp BP Pulse Ox Pulse Ox 11/24/21 11:37 98 H 18 92 11/24/21 10:31 110 H 26 H 154/83 H 94 11/24/21 03:06 18 93 93 11/24/21 03:03 90 18 133/80 94 Laboratory Results 11/24/21 05:42 11/24/21 05:42 PG Care Time/CCT Total # of Minutes Spent Total Time Spent with Patient: Total time spent is greater than 50% in coordination of care (as documented) at patient's floor/unit and/or counseling patient: Coding Level of Care Code 12354 Subseq Hosp Care Lvl 3 Diagnoses Pneumonia due to COVID-19 virus U07.1; J12.82 Hypoxia R09.02 Paroxysmal atrial fibrillation I48.0 Hyperlipidemia E78.5 Glaucoma H40.9 Essential tremor G25.0 Diabetes type 2, controlled E11.9 Benign essential hypertension I10 Anxiety F41.9 Chronic kidney disease, stage 4 (severe) N18.4
[2021-11-24] MEDS ORDERED: FUROSEMIDE INJ 20 MG/2 ML VIAL IV ONE (14:45)
[2021-11-24] MEDS ORDERED: FUROSEMIDE 40 MG/4 ML VIAL IV ONE (14:45)
[2021-11-24] MEDS: RIVAROXABAN 15 MG TAB PO SCH (17:56)
[2021-11-24] MEDS ORDERED: XOPENEX/ATROVENT 0.63mg/0.5MG NEB COMBO NEB SCH (19:00)
[2021-11-24] MEDS: IPRATROPIUM BROMIDE NEB SOLN 0.02% 2.5 ML VIAL INH SCH (20:56)
[2021-11-24] MEDS: LEVALBUTEROL HCL 0.63 MG/3 ML NEB NEB SCH (20:56)
[2021-11-24] MEDS: INSULIN GLARGINE SOLOSTAR 100 UNITS/ML 3 ML PEN SC SCH (21:53)
[2021-11-24] MEDS: REMDESIVIR 100 MG in SODIUM CHLORIDE 0.9% 230 ML IV SCH (22:04)
[2021-11-24] MEDS: LATANOPROST 0.005% OP SOLN 2.5 ML BTL OPR SCH (22:45)
[2021-11-25] MEDS: IPRATROPIUM BROMIDE NEB SOLN 0.02% 2.5 ML VIAL INH SCH ×5 (02:10→20:23)
[2021-11-25] MEDS: LEVALBUTEROL HCL 0.63 MG/3 ML NEB NEB SCH ×5 (02:10→20:23)
[2021-11-25 08:00] LABS: Hematocrit (blood only) 37.9 % (37-47); Hemoglobin 12.8 g/dL (12.0-16.0); Mean Corpuscular Hemoglobin 32.1 pg (25-34); Mean Corpuscular Hgb Conc 33.8 g/dL (32-36); Mean Platelet Volume 10.6 fL (7.4-10.4); Platelet Count 281 K/uL (130-400); RDW Coefficient of Variation 13.4 % (11.5-14.5); RDW Standard Deviation 46.5 fL (36.4-46.3); Red Blood Count 3.99 M/uL (4.2-5.4); White Blood Count 8.05 K/uL (4.8-10.8)
[2021-11-25 08:20] LABS: Basophils # (auto) 0.01 K/uL (0-0.2); Basophils % (auto) 0.1 %; Immature Granulocytes # (auto) 0.02 K/uL (0.00-0.02); Immature Granulocytes % (auto) 0.2 %; Lymphocytes # (auto) 1.11 K/uL (1.2-3.4); Lymphocytes % (auto) 13.8 %; Monocytes # (auto) 0.43 K/uL (0.11-0.59); Monocytes % (auto) 5.3 %; Neutrophils # (auto) 6.48 K/uL (1.4-6.5); Neutrophils % (auto) 80.6 %
[2021-11-25 08:25] LABS: Albumin Level 1.9 gm/dl (3.4-5.0); BUN Creatinine Ratio 34.3 (10-20); Calcium 8.4 mg/dl (8.5-10.1); Creatinine Clr Calc Pharmacy 38.8 ml/min; Est GFR (African American) 48.7 ml/min; Potassium 3.5 mmol/L (3.5-5.1)
[2021-11-25 08:29] LABS: Albumin Globulin Ratio 0.5 (0.9-2); Bilirubin,Total 0.4 mg/dl (0.2-1); C Reactive Protein 2.8 mg/dl (0-0.29); Globulin 3.7 gm/dl (2.5-4.0); Total Protein 5.6 gm/dl (6.4-8.2)
[2021-11-25] MEDS: INSULIN ASPART PER UNIT SC SCH ×4 (08:40→21:50)
[2021-11-25] MEDS: dexAMETHasone 6 MG in SYRINGE 0 ML IV SCH (09:19)
[2021-11-25] MEDS: FLUTICASONE/VILANTEROL 200/25MCG 14 PUFFS/INHALER INH SCH (09:21)
[2021-11-25] MEDS: ZINC SULFATE 220 MG CAPSULE PO SCH (09:22)
[2021-11-25] MEDS: LOSARTAN POTASSIUM 50 MG TAB PO SCH (09:22)
[2021-11-25] MEDS: MULTIVITAMIN TAB PO SCH (09:22)
[2021-11-25] MEDS: guaiFENesin 600 MG TABCR PO SCH ×2 (09:22→21:28)
[2021-11-25] MEDS: METOPROLOL SUCC 50MG EXT REL TAB PO SCH (09:22)
[2021-11-25] MEDS: amLODIPine BESYLATE 5 MG TAB PO SCH (09:23)
[2021-11-25] MEDS: FUROSEMIDE 20 MG TAB PO SCH (09:23)
[2021-11-25] MEDS: OMEGA-3 (PURIFIED FISH OIL) 1 GM CAP PO SCH ×2 (09:23→21:29)
[2021-11-25] MEDS: FENOFIBRATE NANOCRYSTALLIZED 145 MG TABLET PO SCH (09:23)
[2021-11-25] MEDS: CHOLECALCIFEROL 1,000 UNITS 25 MCG TAB PO SCH (09:23)
[2021-11-25] MEDS: BRINZOLAMIDE (AZOPT) OPS 10 ML BTL OP SCH ×2 (09:24→21:30)
[2021-11-25] MEDS: ALPRAZolam 0.5 MG TABLET PO SCH ×2 (09:31→21:32)
[2021-11-25] MEDS: ACETAMINOPHEN 325 MG TAB PO PRN (09:31)
[2021-11-25] MEDS ORDERED: CALCIUM CARBONATE 500 MG CHEWABLE TAB PO PRN (11:04)
--- NOTE | 2021-11-25 11:06 | XRay Report ---
XR chest 1V portable CLINICAL HISTORY: Covid PNA TECHNIQUE: Single frontal radiograph of the chest was obtained. Comparison: Comparison is made to chest one view 11/23/2021 FINDINGS: No lines and tubes are seen. The cardiomediastinal silhouette is stable. Interval improvement in bila teral lower lung predominant airspace opacities. No evidence of pleural effusion or pneumothorax. IMPRESSION: Interval improvement in bilateral airspace disease compatible with history of pneumonia. Stable cardi omegaly. ACT 112: Negative or not required by law. Electronically signed by: Sage Jose M.D. 11/25/2021 11:05 AM
[2021-11-25] MEDS ORDERED: FUROSEMIDE INJ 20 MG/2 ML VIAL IV ONE (13:34)
--- NOTE | 2021-11-25 15:36 | Hospitalist Progress Note ---
Date of Service November 25, 2021 Assessment & Plan (1) Pneumonia due to COVID-19 virus: Plan: Attending: Dr. Fuentes 24-hour update: Patient continues to require supplemental oxygen. Currently at 4 L/min via nasal cannula. Discussion with patient today regarding CODE STATUS. She wishes to not be intubated and placed on mechanical ventilation and she also wishes not to have cardiac compressions performed. CODE STATUS changed to a level 5 DNR/DNI. With associated hypoxia Dexamethasone 6 mg IV daily -day #2/10 days Remdesivir IV per protocol -day #2 of . This may not have much effect as patient is currently day 8 of symptoms. Azithromycin 500 mg IV daily ordered by admitting team. Was discontinued yesterday. If patient has worsening condition, can use azithromycin for anti- inflammatory effect Ventolin HFA 2 puffs every 2 hours as needed Continue with supplemental oxygen to maintain SaO2 between 88% and 92%. Consider high flow O2 if patient gets more tachypneic. No indication for CPAP u nless patient becomes hypercapnic Vitamin D 1000 international units & Zinc every morning ordered. Guaifenesin extended release 1200 mg p.o. every 12 hours Continue Breo Ellipta in place of patient's home Symbicort Routine Xopenex/Atrovent d/t PAF Patient advised to prone as often as possible. Also advised to sleep on her side and rotate [id number] from left to right as tolerated. CRP is not elevated Patient with coarse crackles this morning. She received 20 mg of oral furosemide. I gave her an additional 20 mg IV. Continue pure wick and follow I's and O's Aim to keep COVID patient's slightly net negative due to their tendency to more easily develop pulmonary edema COVID isolation precautions (2) Hypoxia: Plan: As per above (3) Paroxysmal atrial fibrillation: Plan: Currently in NSR Continue msuccinate and Xarelto (4) Hyperlipidemia: Plan: Continue fenofibrate (5) Glaucoma: Plan: Continue routine eyedrops (6) Essential tremor: Plan: Doesn't appear to be on any chronic medications for this (7) Diabetes type 2, controlled: Plan: Glucose 185 upon admission Placed on Accu-Checks before meals and at bedtime with NovoLog coverage per scale hemoglobin A1c=6.4% Anticipate some hyperglycemia in setting of IV Decadron Added Lantus 10units at HS beginning 11/24/2021 Follow blood sugars (8) Benign essential hypertension: Plan: See above (9) Anxiety: Plan: Continue alprazolam (10) Chronic kidney disease, stage 4 (severe): Plan: Follows with nephrology, baseline creat 1.6-1.8 per their documentation Suspect that she is actually hypervolemic Provide IV Lasix as noted above and resume daily Lasix. May need PRN Lasix daily. Follow clinically Plan: Interventions as outlined above On Xarelto which is provided VTE ppx AM Labs ordered including CRP -- if continues to have climbing O2 requirements and CRP>7.5, would be candidate for Baricitinib Prognosis: guarded Long discussion with patient regarding CODE STATUS. She does not want to undergo mechanical ventilation or chest compressions in the event of cardiopulmonary decline. I attempted to contact the daughter twice today. I left a voicemail and there was no return call. Patient was clear that she would not want to undergo endotracheal intubation. CODE STATUS updated on the computer per patient's request. This is certainly appropriate in an 86-year-old with Covid due to such high mortality in the event of worsening respiratory failure. Admission and Anticipated Discharge Date Admission Date: November 23, 2021 Subjective Attending: Dr. Fuentes Patient seen and examined in room 218. She is sitting up in bed. She has no acute respiratory distress. She is saturating at 89 to 90% on 6 L by nasal cannula. Respiratory rate is between 18 and 20. No use of accessory muscles at this time. Patient states that she has been warm but no documented fever. She has no sweats or rigors. She denies any nausea or vomiting or diarrhea. She has nonproductive cough. Today is day #9 of symptoms a day #2 of admission. She was placed on doxycycline as an outpatient by her PCP with no improvement. Review of Systems Review of Systems: All systems reviewed & are unremarkable except as noted in Subjective Physical Exam Physical Exam: GENERAL : No acute distress EYES: No icterus, gaze conjugate NOSE: No evidence of epistaxis. Nasal cannula in place and secure MOUTH: No lesions or candidiasis NECK: Supple LUNGS: Minimal wheezes. Adequate inspirational effort. Crackles at the bases. HEART: Regular, rate controlled ABDOMEN: Soft, NT, ND, BS Present EXTREMITIES: Bilateral LE edema, pedal pulses intact and equal bilaterally NEURO: A&OX3 Results & Data Results & Data ([facility]) Vital Signs (Past 12 Hours) Vital Signs Temp Pulse Resp BP Pulse Ox 11/25/21 14:33 118 H 21 88 L 11/25/21 11:50 36.7 C 103 H 20 114/83 89 L 11/25/21 11:13 107 H 22 88 L 11/25/21 07:50 88 L 11/25/21 07:36 36.8 C 86 20 122/86 91 11/25/21 03:42 93 Laboratory Results 11/25/21 07:14 11/25/21 07:14 COVID-19 Results 11/23/21 19:48 SARS-CoV-2 (PCR) POSITIVE A* Laboratory Tests 11/25/21 07:14 C-Reactive Protein 2.80 H Diagnostic Findings Chest X-Ray 11/25/21 10:09 XR chest 1V portable CLINICAL HISTORY: Covid PNA TECHNIQUE: Single frontal radiograph of the chest was obtained. Comparison: Comparison is made to chest one view 11/23/2021 FINDINGS: No lines and tubes are seen. The cardiomediastinal silhouette is stable. Interval improvement in bilateral lower lung predominant airspace opacities. No evidence of pleural effusion or pneumothorax. IMPRESSION: Interval improvement in bilateral airspace disease compatible with history of pneumonia. Stable cardiomegaly. ACT 112: Negative or not required by law. Electronically signed by: Sage Jose M.D. 11/25/2021 11:05 AM PG Care Time/CCT Total # of Minutes Spent Total Time Spent with Patient: Total time spent is greater than 50% in coordination of care (as documented) at patient's floor/unit and/or counseling patient: 30 minutes Coding Level of Care Code 71086 Subseq Hosp Care Lvl 2 Diagnoses Pneumonia due to COVID-19 virus U07.1; J12.82 Hypoxia R09.02 Paroxysmal atrial fibrillation I48.0 Hyperlipidemia E78.5 Glaucoma H40.9 Essential tremor G25.0 Diabetes type 2, controlled E11.9 Benign essential hypertension I10 Anxiety F41.9 Chronic kidney disease, stage 4 (severe) N18.4 Time Spent (min) 30
[2021-11-25] MEDS ORDERED: SENNOSIDES 8.8 MG/5 ML UDC PO ONE (16:06)
[2021-11-25] MEDS: RIVAROXABAN 15 MG TAB PO SCH (18:20)
[2021-11-25] MEDS: REMDESIVIR 100 MG in SODIUM CHLORIDE 0.9% 230 ML IV SCH (21:28)
[2021-11-25] MEDS: LATANOPROST 0.005% OP SOLN 2.5 ML BTL OPR SCH (21:30)
[2021-11-25] MEDS: INSULIN GLARGINE SOLOSTAR 100 UNITS/ML 3 ML PEN SC SCH (21:51)
[2021-11-25] MEDS: SODIUM CHLORIDE 0.9% 10ML FLUSH IV SCH (23:02)
[2021-11-26] MEDS: IPRATROPIUM BROMIDE NEB SOLN 0.02% 2.5 ML VIAL INH SCH ×4 (05:50→18:14)
[2021-11-26] MEDS: LEVALBUTEROL HCL 0.63 MG/3 ML NEB NEB SCH ×4 (05:50→18:14)
[2021-11-26 07:23] LABS: Basophils # (auto) 0.01 K/uL (0-0.2); Basophils % (auto) 0.1 %; Hematocrit (blood only) 40.6 % (37-47); Hemoglobin 13.8 g/dL (12.0-16.0); Immature Granulocytes # (auto) 0.04 K/uL (0.00-0.02); Immature Granulocytes % (auto) 0.4 %; Lymphocytes # (auto) 1.13 K/uL (1.2-3.4); Lymphocytes % (auto) 10.2 %; Mean Corpuscular Hemoglobin 32.2 pg (25-34); Mean Corpuscular Volume 94.6 fL (80-100); Mean Platelet Volume 10.7 fL (7.4-10.4); Monocytes # (auto) 0.46 K/uL (0.11-0.59); Monocytes % (auto) 4.1 %; Neutrophils # (auto) 9.47 K/uL (1.4-6.5); Neutrophils % (auto) 85.2 %; Platelet Count 323 K/uL (130-400); RDW Coefficient of Variation 13.5 % (11.5-14.5); RDW Standard Deviation 46.7 fL (36.4-46.3); Red Blood Count 4.29 M/uL (4.2-5.4); White Blood Count 11.11 K/uL (4.8-10.8)
--- NOTE | 2021-11-26 07:43 | Hospitalist Progress Note ---
Date of Service November 26, 2021 Assessment & Plan (1) Pneumonia due to COVID-19 virus: Plan: Attending: Dr. Fuentes 24-hour update: Patient continues to require supplemental oxygen. Currently at 4 L/min via nasal cannula. Discussion with patient today regarding CODE STATUS. She wishes to not be intubated and placed on mechanical ventilation and she also wishes not to have cardiac compressions performed. CODE STATUS changed to a level 5 DNR/DNI. First symptoms: ~ 11/16/21 First tested: in our system 11/23/21 Vaccinated: No Admission date: Admission O2 requirement: Admission CRP: Dexamethasone course started: 11/23/21 Remdesivir started: 11/23/21 Tocilizumab given/baricitinib did not meet criteria Antibiotics: Azithromycin 500 mg IV daily ordered by admitting team. Was discontinued 11/25/21 Ventolin HFA 2 puffs every 2 hours as needed Continue with supplemental oxygen to maintain SaO2 between 88% and 92%. Consider high flow O2 if patient gets more tachypneic. No indication for CPAP unless patient becomes hypercapnic Vitamin D 1000 international units & Zinc every morning ordered. Guaifenesin extended release 1200 mg p.o. every 12 hours Continue Breo Ellipta in place of patient's home Symbicort Routine Xopenex/Atrovent d/t PAF Patient advised to prone as often as possible. Also advised to sleep on her side and rotate [id number] from left to right as tolerated. CRP is not elevated Patient with coarse crackles this morning. She received 20 mg of oral furosemide. I gave her an additional 20 mg IV. Continue pure wick and follow I's and O's Aim to keep COVID patient's slightly net negative due to their tendency to more easily develop pulmonary edema COVID isolation precautions (2) Hypoxia: Plan: As per above (3) Paroxysmal atrial fibrillation: Plan: Currently in NSR Continue succinate and Xarelto (4) Hyperlipidemia: Plan: Continue fenofibrate (5) Glaucoma: Plan: Continue routine eyedrops (6) Essential tremor: Plan: Doesn't appear to be on any chronic medications for this (7) Diabetes type 2, controlled: Plan: Glucose 185 upon admission Placed on Accu-Checks before meals and at bedtime with NovoLog coverage per scale hemoglobin A1c=6.4% Anticipate some hyperglycemia in setting of IV Decadron Added Lantus 10units at HS beginning 11/24/2021 Follow blood sugars (8) Benign essential hypertension: Plan: See above (9) Anxiety: Plan: Continue alprazolam (10) Chronic kidney disease, stage 4 (severe): Plan: Follows with nephrology, baseline creat 1.6-1.8 per their documentation Suspect that she is actually hypervolemic Provide IV Lasix as noted above and resume daily Lasix. May need PRN Lasix daily. Follow clinically Plan: Interventions as outlined above On Xarelto which is provided VTE ppx Prognosis: guarded Admission and Anticipated Discharge Date Admission Date: November 23, 2021 Subjective pt is alert and oriented and has many questions today, she is on 6-8 L nc oxygen and appears comfortable Review of Systems Review of Systems: Moderate distress and fatigue no headache, no visual changes no speech or swallowing issues no chest pain, pressure or palpitations Continue shortness of breath, nonproductive cough or wheezes no abdominal pain, nausea or vomiting, no diarrhea no dysuria, hematuria or frequency no focal joint pain or swelling no back pain, CVA tenderness or radicular pain no bruising, bleeding or rashes no focal signs of weakness or numbness or altered sensation no complaints of anxiety or depression.. Physical Exam Physical Exam: The patient appeared mild to moderate respiratory distress Vital signs as documented. Head exam is normocephalic atraumatic Neck is without JVD, thyromegaly, or carotid bruits. Lungs are coarse bilaterally in all lung gutierrez tachypnea Cardiac exam, Rhythm is regular.. No murmurs, rubs or gallops. Abdominal exam reveals normal bowel sounds, soft non tender, no masses Extremities are nonedematous and both pedal pulses are present Neurologic exam is alert and oriented, no focal loss of strength or sensation Skin is without bruises or rashes Psychologically is without concerns for anxiety or depression.. Results & Data Results & Data ([facility]) Vital Signs (Past 12 Hours) Vital Signs Temp Pulse Pulse Resp BP Pulse Ox 11/26/21 07:20 97.3 F L 110 H 20 123/76 88 L 11/26/21 05:51 20 92 11/26/21 03:06 98.1 F 80 14 119/77 92 11/25/21 23:59 81 11/25/21 23:03 97.7 F 96 H 13 107/72 92 11/25/21 20:23 102 H 20 92 PG Care Time/CCT Total # of Minutes Spent Total Time Spent with Patient: Total time spent is greater than 50% in coordination of care (as documented) at patient's floor/unit and/or counseling patient: Coding Level of Care Code 14995 Subseq Hosp Care Lvl 2 Diagnoses Pneumonia due to COVID-19 virus U07.1; J12.82 Hypoxia R09.02 Paroxysmal atrial fibrillation I48.0 Hyperlipidemia E78.5 Glaucoma H40.9 Essential tremor G25.0 Diabetes type 2, controlled E11.9 Benign essential hypertension I10 Anxiety F41.9 Chronic kidney disease, stage 4 (severe) N18.4
[2021-11-26 07:51] LABS: BUN Creatinine Ratio 39.5 (10-20); Calcium 8.7 mg/dl (8.5-10.1); Creatinine Clr Calc Pharmacy 40.6 ml/min; Est GFR (African American) 51.3 ml/min; Est GFR (Non-African American) 44.3 ml/min; Potassium 3.3 mmol/L (3.5-5.1)
[2021-11-26 07:54] LABS: Albumin Globulin Ratio 0.5 (0.9-2); Bilirubin,Total 0.5 mg/dl (0.2-1)
[2021-11-26] MEDS: INSULIN ASPART PER UNIT SC SCH ×4 (08:40→21:43)
[2021-11-26] MEDS: ZINC SULFATE 220 MG CAPSULE PO SCH (09:10)
[2021-11-26] MEDS: MULTIVITAMIN TAB PO SCH (09:11)
[2021-11-26] MEDS: LOSARTAN POTASSIUM 50 MG TAB PO SCH (09:11)
[2021-11-26] MEDS: CHOLECALCIFEROL 1,000 UNITS 25 MCG TAB PO SCH (09:11)
[2021-11-26] MEDS: OMEGA-3 (PURIFIED FISH OIL) 1 GM CAP PO SCH ×2 (09:11→20:35)
[2021-11-26] MEDS: METOPROLOL SUCC 50MG EXT REL TAB PO SCH (09:11)
[2021-11-26] MEDS: FENOFIBRATE NANOCRYSTALLIZED 145 MG TABLET PO SCH (09:11)
[2021-11-26] MEDS: FLUTICASONE/VILANTEROL 200/25MCG 14 PUFFS/INHALER INH SCH (09:12)
[2021-11-26] MEDS: amLODIPine BESYLATE 5 MG TAB PO SCH (09:12)
[2021-11-26] MEDS: BRINZOLAMIDE (AZOPT) OPS 10 ML BTL OP SCH ×2 (09:12→20:34)
[2021-11-26] MEDS: guaiFENesin 600 MG TABCR PO SCH ×2 (09:53→20:35)
[2021-11-26] MEDS: dexAMETHasone 6 MG in SYRINGE 0 ML IV SCH (09:53)
[2021-11-26] MEDS: ALPRAZolam 0.5 MG TABLET PO SCH ×2 (09:53→20:33)
[2021-11-26] MEDS: FUROSEMIDE 20 MG TAB PO SCH (09:54)
[2021-11-26] MEDS: SENNA 8.6 MG TAB PO SCH (10:07)
[2021-11-26 16:44] LABS: Appearance Urine Clear (Clear); Bilirubin Urine Negative (Negative); Blood Urine Negative (Negative); Color Urine Yellow; Glucose Urine UA Negative (Negative); Ketones Urine Negative (Negative); Leukocyte Esterase Urine Negative (Negative); Nitrite Urine Negative (Negative); Protein Urine Negative (Negative); Specific Gravity Urine 1.012 (1.000-1.030); Urobilinogen Urine Negative (Negative)
[2021-11-26] MEDS: RIVAROXABAN 15 MG TAB PO SCH (17:45)
[2021-11-26] MEDS: REMDESIVIR 100 MG in SODIUM CHLORIDE 0.9% 230 ML IV SCH (20:33)
[2021-11-26] MEDS: LATANOPROST 0.005% OP SOLN 2.5 ML BTL OPR SCH (20:34)
[2021-11-26] MEDS: ACETAMINOPHEN 325 MG TAB PO PRN (20:34)
[2021-11-26] MEDS: SODIUM CHLORIDE 0.9% 10ML FLUSH IV SCH (21:43)
[2021-11-26] MEDS: INSULIN GLARGINE SOLOSTAR 100 UNITS/ML 3 ML PEN SC SCH (21:43)
[2021-11-27] MEDS: IPRATROPIUM BROMIDE NEB SOLN 0.02% 2.5 ML VIAL INH SCH ×2 (07:34→11:06)
[2021-11-27] MEDS: LEVALBUTEROL HCL 0.63 MG/3 ML NEB NEB SCH ×2 (07:34→11:07)
[2021-11-27] MEDS: METOPROLOL SUCC 50MG EXT REL TAB PO SCH (09:13)
[2021-11-27] MEDS: MULTIVITAMIN TAB PO SCH (09:13)
[2021-11-27] MEDS: ZINC SULFATE 220 MG CAPSULE PO SCH (09:13)
[2021-11-27] MEDS: FUROSEMIDE 20 MG TAB PO SCH (09:14)
[2021-11-27] MEDS: OMEGA-3 (PURIFIED FISH OIL) 1 GM CAP PO SCH ×2 (09:14→20:31)
[2021-11-27] MEDS: guaiFENesin 600 MG TABCR PO SCH ×2 (09:14→20:31)
[2021-11-27] MEDS: LOSARTAN POTASSIUM 50 MG TAB PO SCH (09:14)
[2021-11-27] MEDS: FENOFIBRATE NANOCRYSTALLIZED 145 MG TABLET PO SCH (09:14)
[2021-11-27] MEDS: amLODIPine BESYLATE 5 MG TAB PO SCH (09:14)
[2021-11-27] MEDS: CHOLECALCIFEROL 1,000 UNITS 25 MCG TAB PO SCH (09:14)
[2021-11-27] MEDS: FLUTICASONE/VILANTEROL 200/25MCG 14 PUFFS/INHALER INH SCH (09:15)
[2021-11-27] MEDS: BRINZOLAMIDE (AZOPT) OPS 10 ML BTL OP SCH ×2 (09:19→20:31)
[2021-11-27] MEDS: dexAMETHasone 6 MG in SYRINGE 0 ML IV SCH (09:19)
[2021-11-27] MEDS: SENNA 8.6 MG TAB PO SCH (09:20)
[2021-11-27] MEDS: INSULIN ASPART PER UNIT SC SCH ×4 (09:25→22:00)
[2021-11-27] MEDS: ALPRAZolam 0.5 MG TABLET PO SCH ×2 (09:25→20:29)
[2021-11-27] MEDS: CALCIUM CARBONATE 500 MG CHEWABLE TAB PO PRN ×2 (11:30→21:59)
[2021-11-27] MEDS: ALBUTEROL HFA 8 GM INHALER INH SCH ×2 (15:05→19:16)
--- NOTE | 2021-11-27 17:12 | Hospitalist Progress Note ---
Date of Service November 27, 2021 Assessment & Plan (1) Pneumonia due to COVID-19 virus: Plan: 24-hour update: Patient continues to require supplemental oxygen. Currently at 6-8 L/min via nasal cannula. Discussion with patient today regarding CODE STATUS. She wishes to not be intubated and placed on mechanical ventilation and she also wishes not to have cardiac compressions performed. CODE STATUS changed to a level 5 DNR/DNI. First symptoms: ~ 11/16/21 First tested: in our system 11/23/21 Vaccinated: No Admission date: Admission O2 requirement: Admission CRP: Dexamethasone course started: 11/23/21 Remdesivir started: 11/23/21 Tocilizumab given/baricitinib did not meet criteria Antibiotics: Azithromycin 500 mg IV daily ordered by admitting team. Was discontinued 11/25/21 Ventolin HFA 2 puffs every 2 hours as needed Continue with supplemental oxygen to maintain SaO2 between 88% and 92%. Consider high flow O2 if patient gets more tachypneic. No indication for CPAP unless patient becomes hypercapnic Vitamin D 1000 international units & Zinc every morning ordered. Guaifenesin extended release 1200 mg p.o. every 12 hours Continue Breo Ellipta in place of patient's home Symbicort Routine Xopenex/Atrovent d/t PAF Patient advised to prone as often as possible. Also advised to sleep on her side and rotate [id number] from left to right as tolerated. CRP is not elevated Patient with coarse crackles this morning. She received 20 mg of oral furosemide. Continue pure wick and follow I's and O's Aim to keep COVID patient's slightly net negative due to their tendency to more easily develop pulmonary edema COVID isolation precautions (2) Hypoxia: Plan: As per above (3) Paroxysmal atrial fibrillation: Plan: Currently in NSR Continue succinate and Xarelto (4) Hyperlipidemia: Plan: Continue fenofibrate (5) Glaucoma: Plan: Continue routine eyedrops (6) Essential tremor: Plan: Doesn't appear to be on any chronic medications for this (7) Diabetes type 2, controlled: Plan: Glucose 185 upon admission Placed on Accu-Checks before meals and at bedtime with NovoLog coverage per scale hemoglobin A1c=6.4% Anticipate some hyperglycemia in setting of IV Decadron Added Lantus 10units at HS beginning 11/24/2021 Follow blood sugars (8) Benign essential hypertension: Plan: See above (9) Anxiety: Plan: Continue alprazolam (10) Chronic kidney disease, stage 4 (severe): Plan: Follows with nephrology, baseline creat 1.6-1.8 per their documentation Suspect that she is actually hypervolemic Provide IV Lasix as noted above and resume daily Lasix. May need PRN Lasix daily. Follow clinically Plan: Interventions as outlined above On Xarelto which is provided VTE ppx Prognosis: guarded Admission and Anticipated Discharge Date Admission Date: November 23, 2021 Subjective pt is alert and oriented and has many questions today, she is on 6-8 L nc oxygen and appears comfortable Review of Systems Review of Systems: Moderate distress and fatigue no headache, no visual changes no speech or swallowing issues no chest pain, pressure or palpitations Continue shortness of breath, nonproductive cough or wheezes no abdominal pain, nausea or vomiting, no diarrhea no dysuria, hematuria or frequency no focal joint pain or swelling no back pain, CVA tenderness or radicular pain no bruising, bleeding or rashes no focal signs of weakness or numbness or altered sensation no complaints of anxiety or depression.. Physical Exam Physical Exam: The patient appeared mild to moderate respiratory distress Vital signs as documented. Head exam is normocephalic atraumatic Neck is without JVD, thyromegaly, or carotid bruits. Lungs are coarse bilaterally in all lung gutierrez tachypnea Cardiac exam, Rhythm is regular.. No murmurs, rubs or gallops. Abdominal exam reveals normal bowel sounds, soft non tender, no masses Extremities are nonedematous and both pedal pulses are present Neurologic exam is alert and oriented, no focal loss of strength or sensation Skin is without bruises or rashes Psychologically is without concerns for anxiety or depression.. Results & Data Results & Data ([facility]) Vital Signs (Past 12 Hours) Vital Signs Temp Pulse Pulse Resp BP Pulse Ox 11/27/21 15:45 98.4 F 101 H 85 14 132/84 89 L 11/27/21 15:06 100 H 20 90 11/27/21 11:27 97.7 F 113 H 113/78 89 L 11/27/21 11:08 91 H 16 92 11/27/21 08:00 100 H 11/27/21 07:36 93 H 18 90 11/27/21 07:22 98.2 F 93 H 18 123/81 89 L PG Care Time/CCT Total # of Minutes Spent Total Time Spent with Patient: Total time spent is greater than 50% in coordination of care (as documented) at patient's floor/unit and/or counseling patient: Coding Level of Care Code 74360 Subseq Hosp Care Lvl 2 Diagnoses Pneumonia due to COVID-19 virus U07.1; J12.82 Hypoxia R09.02 Paroxysmal atrial fibrillation I48.0 Hyperlipidemia E78.5 Glaucoma H40.9 Essential tremor G25.0 Diabetes type 2, controlled E11.9 Benign essential hypertension I10 Anxiety F41.9 Chronic kidney disease, stage 4 (severe) N18.4
[2021-11-27] MEDS: RIVAROXABAN 15 MG TAB PO SCH (17:39)
[2021-11-27] MEDS ORDERED: FLUTICASONE PROPIONATE NA SPR 16 GM BTL PRN (17:53)
[2021-11-27] MEDS: ACETAMINOPHEN 325 MG TAB PO PRN (20:29)
[2021-11-27] MEDS: REMDESIVIR 100 MG in SODIUM CHLORIDE 0.9% 230 ML IV SCH (20:30)
[2021-11-27] MEDS: LATANOPROST 0.005% OP SOLN 2.5 ML BTL OPR SCH (20:31)
[2021-11-27] MEDS: INSULIN GLARGINE SOLOSTAR 100 UNITS/ML 3 ML PEN SC SCH (22:00)
[2021-11-27] MEDS: SODIUM CHLORIDE 0.9% 10ML FLUSH IV SCH (23:20)
[2021-11-28] MEDS: ALBUTEROL HFA 8 GM INHALER INH SCH ×2 (07:27→10:27)
[2021-11-28] MEDS: dexAMETHasone 6 MG in SYRINGE 0 ML IV SCH (08:35)
[2021-11-28] MEDS: INSULIN ASPART PER UNIT SC SCH ×4 (08:35→20:28)
[2021-11-28] MEDS: guaiFENesin 600 MG TABCR PO SCH ×2 (08:36→19:39)
[2021-11-28] MEDS: LOSARTAN POTASSIUM 50 MG TAB PO SCH (08:36)
[2021-11-28] MEDS: OMEGA-3 (PURIFIED FISH OIL) 1 GM CAP PO SCH ×2 (08:36→19:39)
[2021-11-28] MEDS: CHOLECALCIFEROL 1,000 UNITS 25 MCG TAB PO SCH (08:36)
[2021-11-28] MEDS: FUROSEMIDE 20 MG TAB PO SCH (08:36)
[2021-11-28] MEDS: SENNA 8.6 MG TAB PO SCH (08:37)
[2021-11-28] MEDS: METOPROLOL SUCC 50MG EXT REL TAB PO SCH (08:37)
[2021-11-28] MEDS: ZINC SULFATE 220 MG CAPSULE PO SCH (08:37)
[2021-11-28] MEDS: FENOFIBRATE NANOCRYSTALLIZED 145 MG TABLET PO SCH (08:37)
[2021-11-28] MEDS: BRINZOLAMIDE (AZOPT) OPS 10 ML BTL OP SCH ×2 (08:38→19:36)
[2021-11-28] MEDS: MULTIVITAMIN TAB PO SCH (08:39)
[2021-11-28] MEDS: FLUTICASONE/VILANTEROL 200/25MCG 14 PUFFS/INHALER INH SCH (08:39)
[2021-11-28] MEDS: amLODIPine BESYLATE 5 MG TAB PO SCH (08:47)
[2021-11-28] MEDS: ALPRAZolam 0.5 MG TABLET PO SCH ×2 (08:47→19:35)
--- NOTE | 2021-11-28 11:18 | Hospitalist Progress Note ---
Date of Service November 28, 2021 Assessment & Plan (1) Pneumonia due to COVID-19 virus: Plan: continue dexamethasone 6mg IV daily, day 6 Remdesivir daily, started 11/23, finished today up to 10L today patient would not want intubated if she gets worse likely give Lasix 20mg IV again tomorrow, gave her a break today (2) Hypoxia: Plan: As per above (3) Paroxysmal atrial fibrillation: Plan: Currently in NSR Continue succinate and Xarelto (4) Hyperlipidemia: Plan: Continue fenofibrate (5) Glaucoma: Plan: Continue routine eyedrops (6) Essential tremor: Plan: Doesn't appear to be on any chronic medications for this (7) Diabetes type 2, controlled: Plan: Glucose 185 upon admission Placed on Accu-Checks before meals and at bedtime with NovoLog coverage per scale hemoglobin A1c=6.4% Anticipate some hyperglycemia in setting of IV Decadron Added Lantus 10units at HS beginning 11/24/2021 Follow blood sugars, stable today (8) Benign essential hypertension: Plan: See above (9) Anxiety: Plan: Continue alprazolam (10) Chronic kidney disease, stage 4 (severe): Plan: Follows with nephrology, baseline creat 1.6-1.8 per their documentation Suspect that she is actually hypervolemic cr stable, plan for Lasix tomorrow Plan: Interventions as outlined above On Xarelto which is provided VTE ppx Prognosis: guarded Admission and Anticipated Discharge Date Admission Date: November 23, 2021 Subjective patient doing okay, up to 10L, no distress she worked with therapy today, stood up for a few minutes, she said it felt good to move she is eating okay, not great she is making urine, moving her bowels reviewed labs and chart Review of Systems Review of Systems: All systems reviewed & are unremarkable except as noted in Subjective Constitutional: + fatigue and + weakness Respiratory: + cough, + dyspnea and + dyspnea on exertion Physical Exam Physical Exam: General: well developed, well nourished, ill appearing, no acute distress, comfortable Neck: supple, trachea midline, normal thyroid Lungs: clear to auscultation bilaterally, slightly tachypneic, no accessory muscle use, no distress Heart: regular S1 and S2, no murmur, peripheral pulses normal, capillary refill normal, no edema Abdomen: soft, NT, ND, + BS, no hepatomegaly, normal to percussion Extremities: normal in appearance, no cyanosis, no petechiae, strength is 5/5 bilaterally Neuro: awake, cooperative, moves all extremities, no focal motor deficits, CN II-XII intact, sensation in extremities intact, normal speech Skin: warm, dry, no rash, normal turgor Psych: Awake, alert oriented x 3, euthymic affect Results & Data Results & Data ([facility]) Vital Signs (Past 12 Hours) Vital Signs Temp Pulse Pulse Resp BP BP Pulse Ox 11/28/21 10:27 112 H 18 90 11/28/21 09:49 89 11/28/21 08:25 91 11/28/21 08:10 83 L 11/28/21 08:00 89 11/28/21 07:50 36.4 C L 105 H 22 128/92 88 L 11/28/21 07:27 89 18 88 L 11/28/21 03:36 36.4 C L 90 12 122/81 93 11/28/21 03:00 11/27/21 23:59 97 H 11/27/21 23:40 36.8 C 93 H 22 114/80 94 Pulse Ox 11/28/21 10:27 11/28/21 09:49 11/28/21 08:25 11/28/21 08:10 11/28/21 08:00 11/28/21 07:50 11/28/21 07:27 11/28/21 03:36 11/28/21 03:00 89 L 11/27/21 23:59 11/27/21 23:40 Laboratory Results Laboratory Results - last 24 hr 11/27/21 11/27/21 11/27/21 11:41 16:30 20:12 POC Glucose 135 H 175 H 199 H 11/28/21 07:31 POC Glucose 90 Medications Administered Current Inpatient Medications Acetaminophen (Acetaminophen 325 Mg Tab) 650 mg PO Q4H PRN PRN Reason: Pain or Fever Stop: 12/24/21 01:45 Last Admin: 11/27/21 20:29 Dose: 650 mg Documented by: Albuterol (Albuterol Hfa 8 Gm Inhaler) 2 puffs INH QIDR SORAIDA Stop: 12/27/21 14:59 Last Admin: 11/28/21 10:27 Dose: 2 puffs Documented by: Alprazolam (Alprazolam 0.5 Mg Tablet) 0.5 mg PO BID SORAIDA Stop: 12/24/21 08:59 Last Admin: 11/28/21 08:47 Dose: 0.5 mg Documented by: Amlodipine Besylate (Amlodipine Besylate 5 Mg Tab) 5 mg PO DAILY SORAIDA Stop: 12/24/21 08:59 Last Admin: 11/28/21 08:47 Dose: 5 mg Documented by: Brinzolamide (Brinzolamide (Azopt) Ops 10 Ml Btl) 1 drops OP BID SORAIDA Stop: 12/24/21 08:59 Last Admin: 11/28/21 08:38 Dose: 1 drops Documented by: Calcium Carbonate (Calcium Carbonate 500 Mg Chewable Tab) 500 mg PO Q6 PRN PRN Reason: Indigestion Stop: 12/26/21 21:52 Last Admin: 11/27/21 21:59 Dose: 500 mg Documented by: Cetirizine HCl (Cetirizine Hcl 10 Mg Tablet) 10 mg PO DAILY PRN PRN Reason: allergies Stop: 12/24/21 01:45 Dextrose (Dextrose 50% 50 Ml Syringe) 25 - 50 ml IV UD PRN; Protocol PRN Reason: Hypoglycemia Protocol Stop: 12/24/21 01:45 Fenofibrate (Fenofibrate Nanocrystallized 145 Mg Tablet) 145 mg PO DAILY SORAIDA Stop: 12/24/21 08:59 Last Admin: 11/28/21 08:37 Dose: 145 mg Documented by: Fish Oil ([place]-3 (Purified Fish Oil) 1 Gm Cap) 1 gm PO BID SORAIDA Stop: 12/24/21 08:59 Last Admin: 11/28/21 08:36 Dose: 1 gm Documented by: Fluticasone Propionate (Fluticasone Propionate Na Spr 16 Gm Btl) 2 sprays NA Q12H PRN PRN Reason: Congestion Stop: 12/27/21 17:59 Fluticasone/Vilanterol (Fluticasone/Vilanterol 200/25mcg 14 Puffs/Inhaler) 1 puffs INH DAILY S[facility]A[place] Stop: 12/24/21 08:59 Last Admin: 11/28/21 08:39 Dose: 1 puffs Documented by: Furosemide (Furosemide 20 Mg Tab) 20 mg PO QAM [facility] Stop: 12/25/21 08:59 Last Admin: 11/28/21 08:36 Dose: 20 mg Documented by: Glucagon (Glucagon For Inj 1 Mg Vial) 1 mg SQ UD PRN; Protocol PRN Reason: Hypoglycemia Protocol Stop: 12/24/21 01:45 Glucose (Glucose 10 Tabs/Tube) 4 - 8 tabs PO UD PRN; Protocol PRN Reason: Hypoglycemia Protocol Stop: 12/24/21 01:45 Glucose (Glucose 40% Gel 15 Gm Tube) 15 - 30 gm PO UD PRN; Protocol PRN Reason: Hypoglycemia Protocol Stop: 12/24/21 01:45 Guaifenesin (Guaifenesin 600 Mg Tabcr) 1,200 mg PO Q12 S[facility] Stop: 12/24/21 08:59 Last Admin: 11/28/21 08:36 Dose: 1,200 mg Documented by: Dexamethasone 6 mg/ Syringe 1.5 mls @ 1 mls/min IV Q24H [facility] Stop: 12/24/21 08:59 Last Admin: 11/28/21 08:35 Dose: 1 mls/min Documented by: Insulin Aspart (Insulin Aspart Per Unit) 0 units SC [facility]; Protocol Stop: 12/24/21 07:29 Last Admin: 11/28/21 08:35 Dose: Not Given Documented by: Insulin Glargine (Insulin Glargine Solostar 100 Units/Ml 3 Ml Pen) 10 units SC [facility] Stop: 12/24/21 20:59 Last Admin: 11/27/21 22:00 Dose: 10 units Documented by: Latanoprost (Latanoprost 0.005% Op Soln 2.5 Ml Btl) 1 drops [facility] Stop: 12/24/21 20:59 Last Admin: 11/27/21 20:31 Dose: 1 drops Documented by: Losartan Potassium (Losartan Potassium 50 Mg Tab) 100 mg PO DAILY [facility] Stop: 12/24/21 08:59 Last Admin: 11/28/21 08:36 Dose: 100 mg Documented by: Metoprolol Succinate (Metoprolol Succ 50mg Ext Rel Tab) 50 mg PO DAILY [facility] Stop: 12/24/21 08:59 Last Admin: 11/28/21 08:37 Dose: 50 mg Documented by: Miscellaneous (Carbohydrates For Hypoglycemia ) 15 - 30 gm PO UD PRN PRN Reason: Hypoglycemia Protocol Stop: 12/24/21 01:45 Multivitamins (Multivitamin Tab) 1 tab PO [facility] Stop: 12/24/21 08:59 Last Admin: 11/28/21 08:39 Dose: 1 tab Documented by: Ondansetron HCl (Ondansetron Inj 2 Mg/Ml 2 Ml Vial) 4 mg IV Q6H PRN PRN Reason: Nausea Stop: 12/24/21 01:45 Rivaroxaban (Rivaroxaban 15 Mg Tab) 15 mg PO [facility]DD [facility] Stop: 12/24/21 16:29 Last Admin: 11/27/21 17:39 Dose: 15 mg Documented by: Sennosides (Senna 8.6 Mg Tab) 17.2 mg PO [facility] Stop: 12/26/21 08:59 Last Admin: 11/28/21 08:37 Dose: Not Given Documented by: Vitamin D (Cholecalciferol 1,000 Units 25 Mcg Tab) 1,000 units PO [facility] Stop: 12/24/21 08:59 Last Admin: 11/28/21 08:36 Dose: 1,000 units Documented by: Zinc Sulfate (Zinc Sulfate 220 Mg Capsule) 220 mg PO [facility] Stop: 12/24/21 08:59 Last Admin: 11/28/21 08:37 Dose: 220 mg Documented by: PG Care Time/CCT Total # of Minutes Spent Total Time Spent with Patient: Total time spent is greater than 50% in coordination of care (as documented) at patient's floor/unit and/or counseling patient: Coding Level of Care Code 34664 Subseq Hosp Care Lvl 2 Diagnoses Pneumonia due to COVID-19 virus U07.1; J12.82 Hypoxia R09.02 Paroxysmal atrial fibrillation I48.0 Hyperlipidemia E78.5 Glaucoma H40.9 Essential tremor G25.0 Diabetes type 2, controlled E11.9 Benign essential hypertension I10 Anxiety F41.9 Chronic kidney disease, stage 4 (severe) N18.4
[2021-11-28] MEDS: CALCIUM CARBONATE 500 MG CHEWABLE TAB PO PRN ×2 (11:49→19:34)
[2021-11-28] MEDS: ACETAMINOPHEN 325 MG TAB PO PRN ×2 (11:51→20:41)
[2021-11-28] MEDS ORDERED: ALBUTEROL HFA 8 GM INHALER INH PRN (14:24)
[2021-11-28] MEDS: RIVAROXABAN 15 MG TAB PO SCH (16:26)
[2021-11-28] MEDS: LATANOPROST 0.005% OP SOLN 2.5 ML BTL OPR SCH (20:42)
[2021-11-28] MEDS: INSULIN GLARGINE SOLOSTAR 100 UNITS/ML 3 ML PEN SC SCH (20:48)
[2021-11-29] MEDS ORDERED: DICLOFENAC SOD 1% GEL 100 GM TUBE EXT PRN (00:56)
[2021-11-29] MEDS ORDERED: NITROGLYCERIN 2% OINTMENT 30GM TUBE EXT ONE (04:27)
[2021-11-29] MEDS ORDERED: NITROGLYCERIN 2% OINTMENT 30GM TUBE ONE (04:33)
[2021-11-29] MEDS ORDERED: ASPIRIN CHEW 324 MG PO STA (04:37)
--- NOTE | 2021-11-29 04:50 | Communication Note ---
Date of Service: November 29, 2021 Night team notified by nursing patient was experiencing chest pain. Troponin was ordered and returned at 0.049. EKG obtained, showed single lead with early ST segment elevation (v4). The differential at this time included but not limited to: ACS and COVID 19 associated myopericarditis. Repeat trop 6 hours later at 28. Repeat EKG showing more pronounced ST segment elevation in V1-V6. Patient is on Xarelto for A-fib with RVR - her last dose was 16:26 on 11/29/21. I ordered ASA 324mg. I placed order for 1 inch nitropaste (BP on the soft side at 108/78). I placed order for echocardiogram and cardiology consult. I spoke with patient who said she would want to consider cardiac cath. At patient's request I also spoke with her daughter Allie, who confirmed that aside from acute illness, her mother is in good health (her last hospitalization was in the 1970s). Daughter Allie was in favor of her mother having a cath. I called interventional cardiology, Dr. Zach Jordan, who advised me to call a heart alert.
[2021-11-29] MEDS ORDERED: HEPARIN (PORCINE) 1000 UNIT/ML 10 ML (CATH LAB USE ONLY) ONE ×2 (05:45→11:52)
[2021-11-29] MEDS ORDERED: MIDAZOLAM HCL 1 MG/ML 2ML VIAL ONE ×2 (05:45→11:52)
[2021-11-29] MEDS ORDERED: niCARdipine HCL INJ 2.5 MG/ML 10 ML AMP ONE ×2 (05:45→11:52)
[2021-11-29] MEDS ORDERED: NITROGLYCERIN/D5W 100MCG/ML 20ML SYR ONE ×2 (05:45→11:52)
[2021-11-29] MEDS ORDERED: fentaNYL citrate 100 MCG/2 ML VIAL ONE ×2 (05:45→11:52)
[2021-11-29 06:02] LABS: Hematocrit (blood only) 43.9 % (37-47); Mean Corpuscular Hemoglobin 32.3 pg (25-34); Mean Corpuscular Volume 94.6 fL (80-100); Platelet Count 386 K/uL (130-400); RDW Coefficient of Variation 13.7 % (11.5-14.5); RDW Standard Deviation 47.2 fL (36.4-46.3); Red Blood Count 4.64 M/uL (4.2-5.4); White Blood Count 18.92 K/uL (4.8-10.8)
[2021-11-29] MEDS ORDERED: NOREPINEPHRINE BITARTRATE 1 MG/ML 4 ML VIAL (CATH LAB USE ONLY) ONE (06:20)
[2021-11-29 06:29] LABS: BUN Creatinine Ratio 36.3 (10-20); Calcium 9.7 mg/dl (8.5-10.1); Creatinine Clr Calc Pharmacy 38.9 ml/min; Est GFR (African American) 49.2 ml/min; Est GFR (Non-African American) 42.4 ml/min; Mean Corpuscular Hgb Conc 34.2 g/dL (32-36)
[2021-11-29] MEDS ORDERED: SODIUM BICARBONATE 8.4% 50 MEQ in SODIUM CHLORIDE 0.9% 1000ML 1,000 ML IV SCH (06:45)
[2021-11-29] MEDS ORDERED: Standard 16mcg/mL; 4 MG in 250 mL for BRADYCARDIA IV SCH (06:45)
[2021-11-29 06:47] LABS: Basophils # (auto) 0.02 K/uL (0-0.2); Basophils % (auto) 0.1 %; Immature Granulocytes # (auto) 0.09 K/uL (0.00-0.02); Immature Granulocytes % (auto) 0.5 %; Lymphocytes # (auto) 0.84 K/uL (1.2-3.4); Lymphocytes % (auto) 4.4 %; Monocytes # (auto) 0.46 K/uL (0.11-0.59); Monocytes % (auto) 2.4 %; Neutrophils # (auto) 17.51 K/uL (1.4-6.5); Neutrophils % (auto) 92.6 %
[2021-11-29 06:50] LABS: Magnesium 2.3 mg/dl (1.8-2.4); Potassium 3.9 mmol/L (3.5-5.1)
--- NOTE | 2021-11-29 07:00 | Cardiology Consultation ---
Date of Consultation November 29, 2021 Assessment & Plan (1) Acute [place]: Presentation consistent with Anterior STEMI and recommend proceeding with emergent cardiac catheterization and likely primary PCI. Discussed risks, benefits, alternatives of procedure with patient and they are willing to proceed. Further recommendations pending findings of coronary angiography. History of Present Illness Attending Physician: Sage Flores DO History of Present Illness 86-year-old woman seen emergently after heart alert activated for anterior ST elevations on ECG. Past cardiac history remarkable for atrial fibrillation, paroxysmal SVT, hypertension. Patient has been admitted for 6 days with COVID-19 pneumonia being treated with IV steroids, remdesivir. Last night stated she drank some water and then all of a sudden had chest tightness. Initial ECG with borderline anterior ST elevations. Follow-up troponin elevated at 28 and repeat ECG showed diffuse anterior ST elevations. Patient DNR/DNI. Patient and family in agreement with proceeding with emergent catheterization. Allergies Allergy/AdvReac Type Severity Reaction Status Date / Time No Known Drug Allergies Allergy Verified 06/22/21 12:01 Home Medications Medication Instructions Recorded Confirmed Type brinzolamide 1 % eye 1 drops OP BID ml 07/26/19 11/23/21 History drops,suspension fluticasone propionate 50 1 sprays INTRANASAL BID #1 gm 07/26/19 11/23/21 History mcg/actuation nasal spray,suspension omega-3 fatty acids-fish oil 360 1 cap PO BID 07/26/19 11/23/21 History mg-1,200 mg capsule (Fish Oil) blood sugar diagnostic See Rx Instructions MISCELLANEOUS 07/30/19 11/23/21 History [Diabetic.com Test] .COMPLEX multivitamin (Multiple Vitamins) 1 tab PO QAM #30 tab 07/30/19 11/23/21 Rx acetaminophen 500 mg capsule 500 mg PO HS PRN cap 08/04/19 11/23/21 History latanoprost 0.005 % eye drops 1 drops OP .COMPLEX 08/04/19 11/23/21 History amlodipine 5 mg tablet 5 mg PO DAILY #90 tab 05/15/21 11/23/21 Rx losartan 100 mg tablet 100 mg PO DAILY #90 tab 05/15/21 11/23/21 Rx fenofibrate nanocrystallized 145 145 mg PO DAILY #90 tab 05/26/21 11/23/21 Rx mg tablet furosemide 20 mg tablet 20 mg PO DAILY #90 tab 05/26/21 11/23/21 Rx metoprolol succinate 50 mg 50 mg PO DAILY #90 tab 05/26/21 11/23/21 Rx tablet,extended release 24 hr rivaroxaban 15 mg tablet (Xarelto) 15 mg PO QPM #90 tab 05/31/21 11/23/21 Rx cetirizine 10 mg tablet (All Day 10 mg PO DAILY PRN tab 06/01/21 11/23/21 History Allergy (cetirizine)) fluticasone 500 mcg-salmeterol 50 1 inh INHALATION BID #60 ea 06/12/21 11/23/21 Rx mcg/dose blistr powdr for inhalation albuterol sulfate 90 mcg/actuation 1 - 2 puff INHALATION Q4H PRN #18 09/04/21 11/23/21 Rx aerosol inhaler gm alprazolam 0.5 mg tablet 0.5 mg PO BID #60 tab 11/07/21 11/23/21 Rx doxycycline hyclate 100 mg tablet 100 mg PO BID 7 Days #14 tab 11/22/21 11/23/21 Rx Patient History Medical History Anxiety Arthritis Benign essential hypertension Chronic kidney disease, stage 4 (severe) Degenerative joint disease of knee Diabetes type 2, controlled Essential tremor Glaucoma Hyperlipidemia Paroxysmal atrial fibrillation Reactive airway disease Solitary right kidney Urinary incontinence Vitamin D deficiency Surgical History S/P cataract surgery S/P cholecystectomy S/p nephrectomy (1978) S/P total hysterectomy and bilateral salpingo-oophorectomy (1976) Family History Mother , 1962. Cardiac disorder Asthma Rheumatic fever Stroke Father , when patient was 4 yrs old No problems noted. Sister Asthma Denies family history of Ovarian cancer Prostate cancer Myocardial infarction Breast cancer Colorectal cancer Social History Smoking Status: Never smoker Second Hand Exposure: Yes; Hx Alcohol Use: No Hx Substance Use: No Preferred Language: Swedish Communication Ability: Effective Visual Impairment: Limited Hearing Ability: Normal Ortho Rn Required: No Beliefs That Will Affect Care: None marital status: / Current Living Situation: Family Current Living Situation Comment: lives with daughter and dogs Feels Safe at Home: Yes Childhood Exposure to Second-Hand Smoke: Yes caffeine: Yes during the past year weight has: remained stable Dental Care, Regularly: No Physical Activity Frequency: Does not Exercise Seatbelt Use: always Sunscreen Use: No Assistive Devices: Glasses and Oxygen - Continuous Review of Systems Review of Systems: Not obtained in the setting of emergent situation Physical Exam Physical Exam: General: Dyspneic HEENT: Sclerae anicteric Lungs: Crackles anteriorly Cardiac: Irregularly irregular Vascular: 2+ radial Abdomen: Soft Psych: Alert orient x3 Results & Data ([facility]) Vital Signs (Past 12 Hours) Vital Signs Temp Pulse Resp BP Pulse Ox 11/29/21 02:49 98.2 F 98 H 21 108/78 89 L 11/28/21 23:07 98.2 F 94 H 24 144/86 H 95 11/28/21 19:17 97.5 F L 88 19 122/78 91 PG Care Time/CCT Total # of Minutes Spent Total Time Spent with Patient: Total time spent is greater than 50% in coordination of care (as documented) at patient's floor/unit and/or counseling patient: Coding Level of Care Code INT OBSERVATION CARE 70M LVL 3 Diagnoses Acute [place] I21.9
--- NOTE | 2021-11-29 07:15 | Cardiac Catheterization ---
[facility] Data: Industrial Organization Manager Cardiac Status Clinical evaluation leading to the procedure CAD Presenation: STEMI Diagnostic Physicians Name: Hieu Ham MD Closure Device Recommendations: None Cardiac Cath Procedure Full Procedure Date November 29, 2021 Pre-Procedure Diagnosis Pre-Procedure Diagnosis: STEMI AUC Score AUC Score: 9 Post-Procedure Diagnosis Post-Procedure Diagnosis: Cardiothoracic Finding (VF cardiac arrest) Procedure(s) Performed Procedure(s) Performed: Ultrasound Guided Vascular Access Expansion Joint Finisher Hieu Ham MD Aesthetics Instructor(s) Del Estimated Blood Loss Estimated Blood Loss: 3 Medication(s) Medication(s): Atropine and Epinephrine Medication(s): Norepinephrine Summary of Findings Patient has been admitted for 6 days with COVID-19 pneumonia. Last night developed new chest tightness with serial ECG showing anterior ST elevations. Troponin elevated to 28. Patient brought urgently to cardiac catheterization lab this morning. Upon arrival she was awake, conversant in rate controlled atrial fibrillation and hemodynamically stable. While prepping patient for procedure she indicated that she was not feeling well and became unresponsive. Noted to have VF on monitor. She received defibrillation x1 with return to slow organized rhythm. Received epi x2 and developed SVT with pulse. Right common femoral artery access obtained under ultrasound guidance. Patient not intubated in the setting of documented DNR/DNI status. Despite manual bagging patient again lost pulse/PEA. Given additional epi, atropine before recurrent VF. In accordance with documented wishes no further escalation of care. Time of 6:34 AM. Hemodynamics Rest Ao:: -- Final Ao: -- LV: -- Recommendations Recommendations: None Specimens Specimens: None Radiation Exposure (mGy) -- Contrast (mls) -- Anesthesia none I attest to the content of the Intraoperative Record and any orders documented therein. Any exceptions are noted below. [facility] Card Cath Procedure Codes Therapeutic Services & Ancillary Proc Procedure 1: Cardiovascular Tx and Anc Procedures: 07315 Ultrasonic Guidance Vascular Access PG Care Time/CCT Total # of Minutes Spent Total Time Spent with Patient: Total time spent is greater than 50% in coordination of care (as documented) at patient's floor/unit and/or counseling patient:
--- NOTE | 2021-11-29 07:48 | XRay Report ---
XR chest 1V portable HISTORY: Covid positive. Cough. Pneumonia. heart alert COMPARISON: Chest 11/25/2021. FINDINGS: No pneumothorax. Trace bilateral pleural effusions. The cardiac silhouette remains mildly e nlarged. Multifocal bilateral airspace opacities have progressed in the interval. Advanced degenerati ve changes again noted within the shoulders. IMPRESSION: Interval progression of the multifocal bilateral airspace opacities. This likely represents a viral p neumonia. ACT 112: Negative or not required by law. Electronically signed by: Phil Brock M.D. 11/29/2021 7:46 AM
--- NOTE | 2021-11-29 10:17 | Death Pronouncement Note ---
Date of Service November 29, 2021 Pronouncement Note Admission Date Admission Date: November 23, 2021 Date and Time of Date of : 11/29/21 Time of : 06:34 PCOD Preliminary cause of : Acute myocardial infarction Contributing Factors (1) Acute [place]: Summary Additional details: see discharge summary Additional Data Attending physician: Sage Flores DO Coding Level of Care Code None Diagnoses Acute [place] I21.9
--- NOTE | 2021-11-29 10:26 | Discharge Summary ---
Date of Service November 29, 2021 Admission HPI Per Admitting Provider The patient is a 86-year-old female with a past medical history including CKD stage IV, hypertension, anxiety, urinary incontinence, diabetes mellitus type 2, essential tremor, glaucoma, hyperlipidemia, paroxysmal A. fib, reactive airways disease, solitary kidney and vitamin D deficiency. Patient presents with symptoms as noted above. Principal Diagnosis COVID 19 pneumonia Acute [place] Ventricular fibrillation cardiac arrest Discharge Exam no pulse, no respirations, unresponsive Discharge Data Allergies Allergy/AdvReac Type Severity Reaction Status Date / Time No Known Drug Allergies Allergy Verified 06/22/21 12:01 Consultations 11/23/21 22:08 ED Decision to Admit Stat 11/29/21 04:38 Consult Cardiology Routine Procedures Performed Operation Date: 11/29/21 06:00 <No data on this case meets the specified criteria> Ordered Studies 11/29/21 05:44 CL Cath Imgs for PACS use only Stat 11/29/21 05:45 EP Lab Images for PACS ONCE Hospital Course (1) Acute [place]: patient complained of brief chest pain late in evening on 11/28, night resident was notified EKG with ST elevation in V4, troponin was 0.049, chest pain resolved repeat troponin 6 hours later was 28 and repeat EKG showed ST elevation in anterior leads heart alert was called and patient taken to dental laboratory manager she and her daughter were in agreement with proceeding with heart cath while in waiting area she was initially conversive, in rate controlled atrial fibrillation she suddenly complained of not feeling well, became unresponsive and found to be in ventricular fibrillation she was defibrillated, had a slow organized rhythm, got epinephrine x 2, went into SVT with a pulse due to her wishes against intubation, she was Ambu bagged to provide oxygen she went into PEA and got Atropine, epinephrine but given her wishes, no further escalation of care was provided she was pronounced at 634AM (2) Pneumonia due to COVID-19 virus: patient with increasing oxygen requirements on 11/28 she was up to 10L but was not in distress she was treated with dexamethasone 6mg IV daily, completed course of Remdesivir (3) Hypoxia: slowly increasing oxygen requirements, up to 10L on 11/28/21 no distress she was able to stand up with therapy on 11/28 without significant desaturation intermittent use of Lasix to keep lungs dry (4) Anxiety: (5) Benign essential hypertension: (6) Chronic kidney disease, stage 4 (severe): Cr was stable during admission checked BMP closely with intermittent use of Lasix (7) Diabetes type 2, controlled: on Novolog, close monitoring of sugars while on dexamethasone (8) Paroxysmal atrial fibrillation: Total Time Total Time Spent Total Time Spent (In Minutes): 15 Discharge Plan Discharge Items Reason For Visit: COVID-19 PNEUMONIA WITH HYPOXIA Follow-up/Referrals: Teresa Vaughn DO [Primary Care Provider] - Medications and DC Order Prescriptions: No Action amlodipine 5 mg tablet 5 mg PO DAILY Qty: 90 RF: 3 losartan 100 mg tablet 100 mg PO DAILY Qty: 90 RF: 3 fenofibrate nanocrystallized 145 mg tablet 145 mg PO DAILY Qty: 90 RF: 3 furosemide 20 mg tablet 20 mg PO DAILY Qty: 90 RF: 3 metoprolol succinate 50 mg tablet extended release 24 hr 50 mg PO DAILY Qty: 90 RF: 3 Xarelto 15 mg tablet 15 mg PO QPM Qty: 90 RF: 3 fluticasone propion-salmeterol 500-50 mcg/dose blister with device 1 inh inhalation BID Qty: 60 RF: 5 albuterol sulfate 90 mcg/actuation HFA aerosol inhaler 1 - 2 puff inhalation Q4H PRN (Reason: acute bronchitis) Qty: 18 RF: 1 alprazolam 0.5 mg tablet 0.5 mg PO BID Qty: 60 RF: 0 doxycycline hyclate 100 mg tablet 100 mg PO BID 7 Days Qty: 14 RF: 0 brinzolamide 1 % drops,suspension 1 drops OP BID RF: 0 omega-3 fatty acids-fish oil [Fish Oil] 360-1,200 mg capsule 1 cap PO BID RF: 0 fluticasone propionate 50 mcg/actuation spray,suspension 1 sprays intranasal BID Qty: 1 RF: 0 blood sugar diagnostic See Rx Instructions miscellaneous .COMPLEX RF: 0 acetaminophen 500 mg capsule 500 mg PO HS PRN (Reason: Pain) RF: 0 latanoprost 0.005 % drops 1 drops OP .COMPLEX RF: 0 cetirizine [All Day Allergy (cetirizine)] 10 mg tablet 10 mg PO DAILY PRN (Reason: allergies) RF: 0 multivitamin [Multiple Vitamins] tablet 1 tab PO QAM Qty: 30 RF: 0 Krames/Other Patient Handouts: High Blood Sugar (Hyperglycemia), Hypoglycemia (Low Blood Sugar), Managing Type 2 Diabetes Admission Data Admit Date/Time: 11/23/21 22:40 Attending Provider: Sage Flores Admit Provider: Michael Brink Primary Care Provider: Teresa Vaughn Other Providers: Michael Brink ; Lencho oJhnson Coding Level of Care Code D/C DAY MANAGEMENT <30 MINS Diagnoses Acute [place] I21.9 Pneumonia due to COVID-19 virus U07.1; J12.82 Hypoxia R09.02 Anxiety F41.9 Benign essential hypertension I10 Chronic kidney disease, stage 4 (severe) N18.4 Diabetes type 2, controlled E11.9 Paroxysmal atrial fibrillation I48.0
--- NOTE | 2021-11-29 11:17 | Electrocardiogram Report ---
Test Reason : Blood Pressure : / mmHG Vent. Rate : 109 BPM Atrial Rate : 312 BPM P-R Int : 000 ms QRS Dur : 100 ms QT Int : 344 ms P-R-T Axes : 000 -35 093 degrees QTc Int : 463 ms Atrial fibrillation with rapid ventricular response Left axis deviation Moderate voltage criteria for LVH, may be normal variant ST elevation, consider early repolarization, pericarditis, or injury Abnormal ECG When compared with ECG of 23-NOV-2021 21:07, ST no longer depressed in Inferior leads ST elevation has replaced ST depression in Anterolateral leads Nonspecific T wave abnormality has replaced inverted T waves in Lateral leads Confirmed by Hieu Uriostegui ([id number]) on 11/29/2021 11:17:20 AM Referred By: REFERRED SELF Confirmed By:Renato Uriostegui
--- NOTE | 2021-11-29 11:19 | Electrocardiogram Report ---
Test Reason : Blood Pressure : / mmHG Vent. Rate : 114 BPM Atrial Rate : 115 BPM P-R Int : 000 ms QRS Dur : 098 ms QT Int : 386 ms P-R-T Axes : 000 -41 103 degrees QTc Int : 532 ms Poor data quality, interpretation may be adversely affected Atrial fibrillation with rapid ventricular response Left axis deviation Voltage criteria for left ventricular hypertrophy ST elevations concerning for anterior injury Prolonged QT Abnormal ECG When compared with ECG of 28-NOV-2021 21:03, (unconfirmed) T wave inversion now evident in Lateral leads Confirmed by Hieu Uriostegui ([id number]) on 11/29/2021 11:18:43 AM Referred By: REFERRED SELF Confirmed By:Renato Uroistegui
== END 2021-11-29 09:10 | disposition expired | DRG 177 ==
LOC: ED 19:21 → SUATTDRO 22:40 → EDINP 22:40 → 2S 11-24 00:54
PROC: CLB.CPR (2021-11-29 06:00)